=== PATIENT | male | born 1975 | race Caucasian/White ===

== ENCOUNTER 2020-10-09 15:00 | Outpatient (RCR) | payer OTHER, SELFPAY ==
--- NOTE | 2020-06-12 16:35 | MHC.PT.EP ---
[facility] [place] Office [place] Office [place] Office [address] [phone] F: [phone] F: [phone] F: [phone] F: [phone] Physical Therapy Plan of Care Date of Evaluation: 06/12/20 Date of Surgery: Diagnosis: LBP. Assessment: Pt is a 44 y/o male referred to PT for eval and treat of LBP with DJD, L3-4, 4-5 disc bulge with mild central stenosis noted on CT who present with signs and Sx consistent with lumbar dysfunction without radiation resulting in decreased tolerance for sitting, lifting objects of weight, and performing heavy HH chores secondary to decreased lumbar ROM, decreased lumbar strength d/t pain, increased lumbar and LE tissue tension, decreased sitting posture and pain. Pt is deemed an appropriate candidate to receive skilled PT services to address his physical impairments in order to improve his functional ability. Frequency and Duration: The patient will be seen 2x/wk x 5 wks. Short Term Goals: In 1 week: initiate HEP with evidence of compliance. in 3 weeks: improve baseline pain with activity from 6/10 to < 3/10. Halfway Goals: In 5 weeks: I with home program. In 5 weeks: Pt will be able tolerate sitting as long as he requires; initial < 1 hour. In 5 weeks: WNL lumbar extensor MMT; initial good (-) with pain activating L extensor group. Treatment Plan: Modalities to reduce pain, spasms and effusion. Manual therapy to restore motion and function. Therapeutic exercise to improve strength and flexibility. Neuromuscular re-education for posture and balance. Therapeutic activities to return to functional activities of daily living. Electronically signed by: Cipriano Ashley PT. Please sign and return to therapist. Thank you for your referral.
--- NOTE | 2020-10-09 16:54 | MHC.PT.DC ---
[facility] [place] Office [place] Office [place] Office [address] [phone] F: [phone] F: [phone] F: [phone] F: [phone] Physical Therapy Discharge Report Diagnosis: LBP. Date of Surgery: Date of Evaluation: 06/12/20 Date of Discharge: Treatments to Date: 14 Cancellations to Date: 0 No Shows to Date: 0 Discharge Status: Achieved Goals Improved Function Independent with HEP Discharge Summary: Karl has been an active participant in his therapy in and out of the clinic with good motivation has met all of his therapeutic goals and is in agreement with DC at this time. Pt persists with minor L SIJ discomfort intermittently and has skills to managed at this time. Electronically signed by: Cipriano Ashley PT. Please sign and return to therapist. Thank you for your referral.
== END 2021-10-04 12:09 | disposition home or self-care (01) ==
LOC: HO.PTCHIC 15:00
PROVIDERS: PCP Internal Medicine; Visit Provider Internal Medicine
DX: M51.36 Other intervertebral disc degeneration, lumbar region (principal); M51.26 Other intervertebral disc displacement, lumbar region
CPT/HCPCS: 97110; 97140; 97161; 97530

== ENCOUNTER → 2022-05-14 11:13 | Outpatient (BNVA) | payer OTHER, SELFPAY | PROVIDERS: PCP Internal Medicine; Visit Provider Nurse Practitioner | DX: Z01.818 Encounter for other preprocedural examination (principal) | CPT/HCPCS: 99202 ==

== ENCOUNTER 2022-09-03 16:00 | Outpatient (RCR) | payer OTHER, SELFPAY ==
--- NOTE | 2022-05-14 18:35 | MHC.PT.EP ---
[facility] [place] Office [place] Office [place] Office [address] [phone] F: [phone] F: [phone] F: [phone] F: [phone] Physical Therapy Plan of Care Date of Evaluation: Date of Surgery: Diagnosis: LBP Assessment: Pt is a 46 y/o male referred to PT for eval and treat of LBP resulting in decreased tolerance for standing and sitting for duration, as well as traveling, rolling in bed, as well as preforming heavy HH chores secondary to decreased R > L hip strength, decreased core and hip strength, increased LE and lumbar tissue tension, and pain. Pt is deemed an appropriate candidate to receive skilled PT services to address their physical impairments in order to improve their functional ability. Frequency and Duration: The patient will be seen 2 x/ wk x 5 wks. Short Term Goals: initiate HEP. Nursing Home Goals: I with home program and lumbopelvic stab. Pt will be able to sit as long as he'd like with managed Sx. Improve core strength from fair (+) to at least good. Pt will demonstrate (-) LOUISE on exam. Pt will report able to travel with managed Sx. Treatment Plan: Modalities to reduce pain, spasms and effusion. Manual therapy to restore motion and function. Therapeutic exercise to improve strength and flexibility. Neuromuscular re-education for posture and balance. Therapeutic activities to return to functional activities of daily living. Electronically signed by: Cipriano Ashley PT. Please sign and return to therapist. Thank you for your referral.
--- NOTE | 2022-10-22 12:59 | MHC.PT.DC ---
[facility] [place] Office [place] Office [place] Office [address] [phone] F: [phone] F: [phone] F: [phone] F: [phone] Physical Therapy Discharge Report Diagnosis: LBP Date of Surgery: Date of Evaluation: 05/14/22 Date of Discharge: 10/22/22 Treatments to Date: 12 Cancellations to Date: No Shows to Date: Discharge Status: Improved Function Independent with HEP Patient Elected to Stop Discharge Summary: Karl had made improvements in physical therapy however persists with LBP and L hip pain which he reports is more manageable when he is consistent with self care. He did not attend his last visit for final assessment. Electronically signed by: Cipriano Ashley PT. Please sign and return to therapist. Thank you for your referral.
== END 2022-10-22 13:01 | disposition home or self-care (01) ==
LOC: HO.PTCHIC 16:00
PROVIDERS: PCP Internal Medicine; Visit Provider Internal Medicine
DX: M51.26 Other intervertebral disc displacement, lumbar region (principal)
CPT/HCPCS: 97110; 97140; 97161

== ENCOUNTER 2022-09-05 07:24 | Outpatient (REF) | payer OTHER, SELFPAY ==
--- NOTE | ~2022-09-05 | MR_ITS ---
EXAMINATION: MR LUMBAR SPINE WITHOUT CONTRAST CLINICAL INFORMATION: Chronic low back pain L4-L5 area. COMPARISON: No relevant prior imaging. TECHNIQUE: MRI of the lumbar spine was obtained using routine sequences without contrast. FINDINGS: Alignment is normal. Vertebral heights are preserved. No acute bone marrow signal changes. There is slight loss of intervertebral disc height and T2 signal intensity at multiple levels related to disc degeneration. The tip of the conus medullaris is located at L1-L2. No mass effect on the conus. Visualized distal cord signal intensity is normal. At L1-L2 there is a slightly bulging disc. No canal stenosis. No mass effect on the traversing or foraminal nerve roots. At L2-L3 there is a shallow right subarticular protrusion superimposed upon a bulging disc. Bilateral facet degenerative change. No canal stenosis. No mass effect on the traversing or foraminal nerve roots. At L3-L4 there is a diffusely bulging disc. Bilateral facet degenerative change. Mild canal stenosis. Subarticular zone narrowing causes displacement of the right traversing L4 nerve roots. No substantial mass effect on the traversing or foraminal nerve roots. At L4-L5 there is a slightly bulging disc. Bilateral facet degenerative change. No canal stenosis. No substantial mass effect on the traversing or foraminal nerve roots. At L5-S1 there is a central annular fissure associated with a bulging disc. Bilateral facet degenerative change. No canal stenosis. No mass effect on the traversing or foraminal nerve roots. Limited visualization of the retroperitoneal anatomy reveals no abnormal finding. Psoas and paraspinal muscle groups are symmetric. MR/MR lumbar spine wo con IMPRESSION: There is multilevel degenerative spondylosis of the lumbar spine. Mild canal stenosis at L3-L4. Otherwise no canal compromise. Subarticular zone narrowing at L3-L4 causes displacement of the right traversing L4 nerve roots. Otherwise no substantial mass effect on the traversing or foraminal nerve roots elsewhere within the lumbar spine.
== END 2022-09-05 07:25 | disposition home or self-care (01) ==
LOC: HO.MRI 07:24
PROVIDERS: PCP Internal Medicine; Visit Provider Internal Medicine
DX: M51.26 Other intervertebral disc displacement, lumbar region (principal)
CPT/HCPCS: 72148

== ENCOUNTER 2022-12-11 12:26 | Day surgery (SDC) | payer OTHER, SELFPAY ==
[2022-12-09 12:14] VITALS: BMI 25.6
--- NOTE | 2022-12-11 12:14 | MHC.SHP ---
Pre-Procedural Eval Section A Date of Service: 12/11/22 Section B Chief Complaint: screening Relevant Family History (Specify if Yes): No Relevant Social History: None Present Medications: see Short Stay Collaborative assessment Medical History: Significant History (Acute low back pain due to spinal disorder Aftercare following right shoulder joint replacement surgery Bulging of lumbar intervertebral disc without myelopathy Degenerative disc disease, lumbar Lumbago Skin lesion of right leg Superior labrum rqpccesq-cs-gblxrpdnd (SLAP) tear of right shoulder) History of Previous Operations: No relevant previous surgery Allergies: Allergies Allergy/AdvReac Type Severity Reaction Status Date / Time No Known Allergies Allergy Verified 08/22/22 09:19 Review of Systems Sugical H&P ROS: Negative: Constitution, Cardiovascular, Respiratory, Neurological, Psychiatric, Hem-Onc, Allergic/Immunologic, Gastrointestinal, Genitourinary, Musculoskeletal, Integumentary, Endocrine and Eyes/Ears/Nose/Throat Plan Diagnosis/Plan: Unchanged I have reviewed the history and physical and performed a pertinent physical examination on my patient. No changes have occurred unless specified. Time Spent With Patient Time: Total time managing care of this patient today ____ minutes.
[2022-12-11 12:45] VITALS: BP 121/83; PULSE 84; RESP 16; TEMP 36.7; O2SAT 97
--- NOTE | 2022-12-11 12:49 | HO.ANESPROP2 ---
[facility] Active Problems Active Problems: All Active Problems (Updated 08/22/22 @ 09:33 by Cleo Shell MD) Bulging of lumbar intervertebral disc without myelopathy (Acute) Degenerative disc disease, lumbar (Acute) Past Medical History Medical History (Updated 08/22/22 @ 09:33 by Cleo Shell MD) Acute low back pain due to spinal disorder Aftercare following right shoulder joint replacement surgery Bulging of lumbar intervertebral disc without myelopathy Degenerative disc disease, lumbar Lumbago Skin lesion of right leg Superior labrum nuvgwuul-gg-otprchjwe (SLAP) tear of right shoulder Family History Family History Mother Hypertension Family/Other Substance use disorder Family history of problems with anesthesia: No Surgical History Surgical History H/O eye surgery H/O shoulder surgery No pertinent past surgical history History of Problems with Anesthesia: No Social History Social History Housing: House Alcohol intake: never Patient Tobacco Use Status: Former Tobacco user Tobacco use type: Cigarette Years Smoked: 10 e-Cigarette/Vaping Use: Never Used Second Hand Smoke Exposure: No Use of substances other than those prescribed or required for medical reasons: No Are you DNR?: No Advance Directives: No Advance Directives Information Provided: Yes service: Yes Current occupational status: employed Current occupational exposures/hazards: Yes Cognitive needs: No Hearing needs: No Vision needs: No Meds Allergies Allergy/AdvReac Type Severity Reaction Status Date / Time Penicillins [PCN] Allergy Rash Verified 12/11/22 12:48 Active Medications: Current Medications Lactated Ringer's (Lr) 1,000 mls @ 100 mls/hr IVCONT .Q10H [facility] Home Medications Medication Instructions Recorded Confirmed Last Taken Type No Known Home Meds 12/11/22 12/11/22 Unknown History Exam Exam Date and Time: December 11, 2022 1249 Height,Weight and Vital Signs: Height 6 ft 1 in Weight 87.997 kg Airway Mallampati Class: II TM Dist: >3cm Neck ROM: Full Assessment and Plan Assessment Anesthesia Assessment: Anesthesia Plan Discussed and Chart Reviewed Final Anesthetic Review Family History of Problems with Anesthesia: No History of Problems with Anesthesia: No NPO: Yes ASA Class: I Final Preanesthetic Review: No Changes in Pt Med Stat, Meds/Allgs Chart Reviewed, Consent Obtained/Reviewed and Anes Risks/Benef Reviewed Patient Risk: Low Procedure Risk: Low Anesthetic Plan Anesthetic Plan: MAC: Disposition: Standard PACU
[2022-12-11] MEDS: Lactated Ringers 1,000 ML 100 ML IVCONT (12:58)
--- NOTE | 2022-12-11 13:36 | P.OP_ITS ---
Operative Note Operative Note Date of Service: 12/11/22 Narrative: Operative Information Procedure Description: Colonoscopy Indication: screening Anesthesia: MAC COLONOSCOPY Instrument: Olympus variable stiffness pediatric scope 190L Colonoscopy Monitoring: Vital signs and clinical assessment, continuous EKG monitoring, Pulse oximetry, Carbon Dioxide monitoring and blood pressure monitoring were done throughout the procedure. Colon withdrawal time was 8 minutes. Procedure: The patient was placed in the left lateral decubitis position and pre-procedure medications were administered. After a digital rectal examination of the ano-rectum, the video colonoscope was inserted into the rectum and advanced through the colon to the cecum/TI. The colonoscope was slowly withdrawn in a retrograde panoramic fashion and the colon mucosa was carefully examined including a retroflexed view of the rectum. Findings and interventions are described below. Procedure Difficulty: easy Findings: Terminal Ileum-normal Cecum:normal Ascending Colon: normal Transverse Colon -normal Descending Colon:normal Sigmoid Colon: normal Rectum: Retroflexion with medium sized internal hemorrhoids, grade I Anorectum - normal Colon preparation: [place] Bowel Preparation Scale Right colon; 2 Transverse colon: 3 Left colon; 3 (0 = Unprepared colon segment with mucosa not seen due to solid stool that cannot be cleared. 1 = Portion of mucosa of the colon segment seen, but other areas of the colon segment not well seen due to staining, residual stool and/or opaque liquid. 2 = Minor amount of residual staining, small fragments of stool and/or opaque liquid, but mucosa of colon segment seen well. 3 = Entire mucosa of colon segment seen well with no residual staining, small fragments of stool or opaque liquid) Impression and Post Procedure Diagnosis: internal hemorrhoids Plan: High fiber diet leaflet Avoid straining at stool, epsom salts and sitz bath, anusol supps or cream Repeat Colonoscopy in 10 years or earlier if clinically indicated Above findings were reviewed with the patient and relevant handouts were provided if indicated.
[2022-12-11 13:40] VITALS: BP 114/70; PULSE 73; RESP 16; TEMP 37.1; O2SAT 97
[2022-12-11 13:55] VITALS: BP 105/80; PULSE 73; RESP 16; TEMP 36.5; O2SAT 97
== END 2022-12-11 15:27 | disposition home or self-care (01) ==
PROVIDERS: PCP Internal Medicine; Visit Provider Internal Medicine Gastroenterology
PROC: 0DJD8ZZ Inspection of Lower Intestinal Tract, Via Natural or Artificial Opening Endoscopic (ICD-10-PCS; CPT 45378; principal; 2022-12-11 14:20)
DX: Z12.11 Encounter for screening for malignant neoplasm of colon (principal); K64.0 First degree hemorrhoids; Z87.891 Personal history of nicotine dependence
CPT/HCPCS: 45378

== ENCOUNTER → 2022-12-11 12:26 | Outpatient (BNV) | payer OTHER, SELFPAY | PROVIDERS: PCP Internal Medicine; Visit Provider Internal Medicine Gastroenterology | DX: Z12.11 Encounter for screening for malignant neoplasm of colon (principal) | CPT/HCPCS: 45378 ==

== ENCOUNTER 2022-12-25 08:01 | Outpatient (AMB) | payer OTHER, SELFPAY ==
--- NOTE | 2022-12-25 08:06 | MHC.OFFVIS ---
Intake Vital Signs 12/25/22 08:17 Height 6 ft 1 in Weight 192 lb BMI 25.3 Blood Pressure Location Lt brachial Position Sitting Intake Visit Reasons: S/p colon-Hay Intake Note: Karl presents in the office as a follow up colonoscopy. CC: No concerns since his colonoscopy - just here for the results. Allergies Penicillins [PCN] Allergy (Verified 12/11/22 12:48) Rash HPI S/p colon-Hay HPI Details Assessment & Plan (1) Pre-op examination: ?Code(s): Z01.818 - Encounter for other preprocedural examination ?Plan: This is his first colonoscopy No bowel or upper GI problems There are no prior problems with anesthesia or sedation. He denies any cardiac or respiratory problems. No ID problems There is no known FHX of crc or polyps. ? ? ? Orders: Orders Comprehensive Met. Panel Today Z01.818 - Encounte r for other prepro cedural examinatio n ? Complete Blood Cou nt Auto Diff Today Z01.818 - Encounte r for other prepro cedural examinatio n ? Medications: New peg 3350-electroly alexis 236-22.74-6.74 -5.86 gram (Golyt ibis) ?? until feca l effluent is damian r; do not exceed a total volume of 2 ,000 mL 240 mL? PO Q10M 1 day 4,000 mL 0RF Z12.11 - Encounter for screening for malignant neoplas m of colon ? COLONOSCOPY 12/11/22 Findings: Terminal Ileum-normal Cecum:normal Ascending Colon: normal Transverse Colon -normal Descending Colon:normal Sigmoid Colon:? normal Rectum: Retroflexion with medium sized internal hemorrhoids, grade I Anorectum - normal Impression and Post Procedure Diagnosis: internal hemorrhoids Plan: High fiber diet leaflet Avoid straining at stool, epsom salts and sitz bath, anusol supps or cream Repeat Colonoscopy in 10 years or earlier if clinically indicated TODAY'S VISIT He is agreeable to a 10 year follow-up. The procedure was well tolerated. The results were explained and the patient is agreeable to the follow-up interval as stated. The bowel pattern has returned to normal. Education was provided to tell any 1st degree relatives about their findings to be sure that they are screened by age 45. Educated that they will be put on a recall list when it is time for their repeat scope but should they move out of state or away from the hospital they will need to remember along with their primary to repeat the procedure in a timely fashion to avoid any adverse complications. [facility] Medical History (Updated 12/25/22 @ 09:06 by SHEREEN Faith) Acute low back pain due to spinal disorder Aftercare following right shoulder joint replacement surgery Bulging of lumbar intervertebral disc without myelopathy Degenerative disc disease, lumbar Lumbago Skin lesion of right leg Superior labrum ijkxoiyy-ys-boeubirrw (SLAP) tear of right shoulder Surgical History (Updated 12/25/22 @ 08:18 by STEVEN Coffman) H/O eye surgery H/O shoulder surgery Hx of colonoscopy No pertinent past surgical history Family History Mother Hypertension Family/Other Substance use disorder Social History Housing: House Alcohol intake: never Patient Tobacco Use Status: Former Tobacco user Tobacco use type: Cigarette Years Smoked: 10 e-Cigarette/Vaping Use: Never Used Second Hand Smoke Exposure: No service: Yes Current occupational status: employed Current occupational exposures/hazards: Yes Cognitive needs: No Hearing needs: No Vision needs: No Review of Systems Const Denies fatigue, Denies fever(s), Denies night sweats, Denies poor appetite and Denies weight loss Eyes Details: glasses Reports requires corrective lenses ENT Reports Normal hearing present, Denies dental pain, Denies dysphagia, Denies hearing loss, Denies mouth pain, Denies odynophagia, Denies throat swelling, Denies tongue swelling and Reports other (Dentition adequate) Card Reports no additional complaints Resp Reports no additional complaints GI Denies abdominal pain, Denies melena, Denies bloating, Denies hematochezia, Denies constipation, Denies GI cramping, Denies dysphagia, Denies excessive flatus, Denies early satiety, Denies heartburn, Denies diarrhea, Denies nausea, Denies odynophagia, Denies vomiting and Denies hematemesis Skin/Breast Denies pruritus, Denies lesions, Denies rash and Denies jaundice Neuro Reports Normal hearing present and Denies Abnormal speech present Endo Denies fatigue Aller/Immun Denies throat swelling and Denies tongue swelling Physical Exam Vital Signs: BMI result Body Mass Index 25.3 Const General: cooperative, no acute distress, well developed and well groomed Nutritional Appearance: well nourished Orientation/consciousness: oriented to person, oriented to place and oriented to time Limitations: No language barrier HEENT Head: Yes normocephalic and Yes atraumatic Eyes General: appearance normal, both eyes and all related structures Pupils: Equal, round and reactive pupils present Neck Neck: Yes normal visual inspection and Yes no lymphadenopathy Thyroid: Thyroid normal Resp Effort & Inspection: normal respiratory effort and able to speak in complete sentences Auscultation: clear to auscultation bilaterally Cardio Rate: regular rate Rhythm: regular rhythm Heart sounds: Normal, physiologic split S2 sound present Peripheral pulses: radial pulses present and posterior tibial pulses present GI Inspection: No distended and No Abdominal panniculus present Palpation (GI): Soft to palpation, nontender, no guarding, not rigid and No hepatosplenomegaly present Percussion: Yes normal to percussion Auscultation: normal bowel sounds Rectal Exam - Male: Yes deferred Skin General skin exam: no rashes or lesions noted, turgor normal, skin not dry, no jaundice, No spider nevi and no striae Rashes: no rashes Nails: normal Neuro General: oriented to person, oriented to place and oriented to time Cranial nerves: Yes Equal, round and reactive pupils present and Yes Normal hearing present Speech: No Abnormal speech present Extrem General: Yes normal to inspection, No clubbing, No cyanosis and No edema Psych Appearance: grossly normal and well kempt Mental Status: mental status grossly normal Speech and movement: Normal speech and movement present Affect: normal affect Attitude: cooperative Thought process: Normal thought process present and not confabulating Thought content: Normal thought content present Insight: Good insight present (Psych) Judgement: Good judgement present (Psych) Assessment & Plan Assessment & Plan (1) Colon cancer screening: Code(s): Z12.11 - Encounter for screening for malignant neoplasm of colon Plan: He is agreeable to a 10 year follow-up. The procedure was well tolerated. The results were explained and the patient is agreeable to the follow-up interval as stated. The bowel pattern has returned to normal. Education was provided to tell any 1st degree relatives about their findings to be sure that they are screened by age 45. Educated that they will be put on a recall list when it is time for their repeat scope but should they move out of state or away from the hospital they will need to remember along with their primary to repeat the procedure in a timely fashion to avoid any adverse complications. Coding Level of Care Code Est Pt Level 3 (93883) Diagnoses Colon cancer screening Z12.11
[2022-12-25 08:17] VITALS: BMI 25.3
== END 2022-12-25 08:43 | disposition home or self-care (01) ==
PROVIDERS: PCP Internal Medicine; Visit Provider Nurse Practitioner
DX: K64.0 First degree hemorrhoids (principal); Z71.2 Person consulting for explanation of examination or test findings
CPT/HCPCS: 99213

== ENCOUNTER → 2022-12-25 08:01 | Outpatient (BNVA) | payer OTHER, SELFPAY | PROVIDERS: PCP Internal Medicine; Visit Provider Nurse Practitioner | DX: Z12.11 Encounter for screening for malignant neoplasm of colon (principal) | CPT/HCPCS: 99212 ==

== ENCOUNTER 2023-02-06 13:57 | Outpatient (AMB) | payer OTHER, SELFPAY ==
--- NOTE | 2023-02-06 13:59 | A.OFFPC_ITS ---
<Statement entered by Cleo Shell MD - 07/03/25 23:59> This note has been administratively?closed. Vital Signs 02/06/23 14:08 Height 6 ft 1 in Weight 194 lb BMI 25.6 BP 104/60 Blood Pressure Location Lt brachial Position Sitting Pulse 80 Pulse Source Pulse Oximeter Pulse Oximetry (%) 97 Oxygen Delivery Method Room Air Intake Visit Reasons: Annual PE Intake Note: Pt is here today for his PE Allergies Penicillins (PCN) Allergy (Verified 02/24/25 12:07) Rash Medication List - Last Reconciled 02/06/23 by Cleo Shell MD No Known Home Meds Tobacco use date assessed: 02/06/23 Dental Screening Dental Screen Date: 02/06/23 Did you have a dental visit in the last 12 months?: Yes Did you have a dental problem in the last 6 months where you did not have access to dental care?: No Was dental information given to patient?: Patient has dentist HPI Annual PE HPI Details 47-year-old male, here today for a physi adis exam. He is up-to-date with screening colonoscopy done this summer with Dr. Duncan which only showed presence of mild internal hemorrhoids, repeat screening again in 10 years. He has recurrent low back pain due to degenerative disc disease in lumbar spine. Currently not taking anything as nothing helps. Tried PT in the past several times Has a lesion on right knee that is growing in size, would like it removed. [facility] Medical History (Updated 02/27/25 @ 11:38 by Cleo Shell MD) Erectile dysfunction Bruxism (teeth grinding) Generalized anxiety disorder TMJ (temporomandibular joint disorder) Lumbago Bulging of lumbar intervertebral disc without myelopathy Degenerative disc disease, lumbar Superior labrum elwzgimu-in-isxhzoyoj (SLAP) tear of right shoulder Surgical History Skin lesion of right leg Hx of colonoscopy H/O shoulder surgery H/O eye surgery Family History Mother Hypertension Family/Other Substance use disorder Social History Housing: House Alcohol intake: never Patient Tobacco Use Status: Former Tobacco user Tobacco use type: Cigarette Years Smoked: 10 e-Cigarette/Vaping Use: Never Used Second Hand Smoke Exposure: No service: Yes Current occupational status: employed Current occupational exposures/hazards: Yes Cognitive needs: No Hearing needs: No Vision needs: Yes Questionnaire PHQ-9 Over the last 2 weeks, how often have you been bothered by any of the following problems? 1. Little interest or pleasure in doing things: not at all 2. Feeling down, depressed, or hopeless: not at all 3. Trouble falling or staying asleep, or sleeping too much: not at all 4. Feeling tired or having little energy: not at all 5. Poor appetite or overeating: not at all 6. Feeling bad about yourself - or that you are a failure or have let yourself or your family down: not at all 7. Trouble concentrating on things, such as reading the newspaper or watching television: not at all 8. Moving or speaking so slowly that other people could have noticed. Or the opposite - being so fidgety or restless that you have been moving around a lot more than usual: not at all 9. Thoughts that you would be better off or of hurting yourself in some way: not at all Total score: 0 Depression Screening Interpretation: Negative 26355 - PHQ-9 Billing: Yes Source: Developed by Drs. Guilherme Marie, Lydia Fisher, Oscar Rockwell and colleagues, with an educational anne marie from [employer]. Thrive Questionnaire Date Thrive assessed: 02/06/23 I am a: Patient What is your living situation today?: I have a steady place to live Within the past 12 months, did the food you bought not last and you didn't have the money to get more?: Never true Within the past 12 months, did you worry whether your food would run out before you got money to buy more?: Never true Do you have trouble paying for medicines?: No Do you have trouble getting transportation to medical appointments?: No Do you have trouble paying your heating and electricity bill?: No Do you have trouble taking care of your child, family member or friend?: No Do you have trouble with day-to-day activities such as bathing, preparing meals, shopping, managing finances, etc.?: No Are you currently unemployed and looking for a job?: No Are you interested in more education?: No AUDIT C Alcohol Use Questionnaire (AUDIT-C) 1. How often do you have a drink containing alcohol?: Never Total Score: 0 DEMOND-7 AMB Questionnaire DEMOND-7 Date DEMOND - 7 assessed: 02/06/23 Feeling nervous, anxious, or on edge: 0 = Not at all Not being able to stop or control worryin = Not at all Worrying too much about different things: 0 = Not at all Trouble relaxin = Not at all Being so restless that it is hard to sit still: 0 = Not at all Becoming easily annoyed or irritable: 0 = Not at all Feeling afraid as if something awful might happen: 0 = Not at all Total DEMOND-7 score (0-4 normal; 5-9 mild; 10-14 moderate; 15-21 severe): 0 Source: Developed by Drs. Guilherme Marie, Lydia Fisher, Oscar Rockwell and colleagues, with an educational anne marie from [employer]. DEMOND-7 Assessment Billing DEMOND-7 Assessment Tool: DEMOND-7 Assessment 26927 Review of Systems Const Denies fatigue, Denies fever(s), Denies headache(s) and Denies weakness Eyes Details: Goes to [facility] in [place] [facility] Denies dizziness, Denies headache(s), Denies nasal congestion, Denies nasal discharge and Denies sore throat Card Denies chest pain, Denies lightheadedness, Denies palpitations and Denies dyspnea Resp Denies chest congestion, Denies cough, Denies dyspnea and Denies wheezing GI Denies abdominal pain, Denies change in bowel habits and Denies heartburn Denies hematuria, Denies difficulty urinating, Denies genital lesions, Denies dysuria, Denies nocturia, Denies penile discharge, Denies scrotal swelling, Denies testicular mass, Denies testicular pain, Denies urinary frequency and Denies urinary urgency Musc Reports as per HPI, Denies arthralgias, Denies joint swelling, Denies muscle weakness, Denies numbness, Denies radiating pain into limb, Reports stiffness and Denies tingling Skin/Breast Reports as per HPI Neuro Denies dizziness, Denies headache(s), Denies numbness, Denies Sensory deficit (Neuro), Denies tingling and Denies weakness Psych Reports as per HPI Endo Denies fatigue, Denies polydipsia, Denies polyuria and Denies palpitations Feroz/Lymph Denies easy bruising Aller/Immun Denies seasonal rhinorrhea and Denies wheezing Physical exam (Primary Care) Vital Signs: Last Vital Signs Pulse 80 02/06/23 14:08 BP 104/60 02/06/23 14:08 Pulse Ox 97 02/06/23 14:08 Oxygen Delivery Method Room Air 02/06/23 14:08 BMI result Body Mass Index 25.6 Tobacco/Smoking Status: Tobacco use Status Tobacco use date assessed 02/06/23 02/06/23 14:05 Patient Tobacco Use Status Former Tobacco user 02/06/23 14:01 Tobacco use type Cigarette 02/06/23 14:01 e-Cigarette/Vaping Use Never Used 02/06/23 14:01 PHQ-9: PHQ-9 Score PHQ-9: Total score 0 03/03/23 09:55 Depression Screening Interpretation: Negative Thrive Assessment: Date of Thrive Assessment Date Thrive assessed 02/06/23 02/06/23 14:11 Const Other: Alert oriented x3, no acute distress noted ambulatory with the slightly limping gait, having difficulty straightening back due to pain General: healthy appearing, no acute distress and well developed Nutritional Appearance: average body habitus Orientation/consciousness: patient oriented x3 Limitations: no limitations HENMT Head: Yes normocephalic and Yes atraumatic Ears: external ears normal, TM's normal bilaterally and EAC's normal General nose exam: Normal external nose present Face and sinus: Yes face symmetric Mouth: Normal oral and palatal mucosa present, oropharynx normal and moist mucous membranes Eyes General: appearance normal, both eyes and all related structures Neck Neck: Yes full ROM, Yes no lymphadenopathy, Yes no meningeal signs and Yes supple Thyroid: Thyroid normal Chest Chest palpation & inspection: normal inspection of the chest Resp Effort & Inspection: normal respiratory effort and able to speak in complete sentences Auscultation: clear to auscultation bilaterally Cardio Other: S1-S2 present regular rate and rhythm Rate: regular rate Rhythm: regular rhythm Heart sounds: S1 normal heart sound present and S2 normal heart sound present GI Other: Normal bowel sounds soft nontender with no mass palpated Inspection: Yes normal to inspection Palpation (GI): Soft to palpation, nontender, no guarding, no hernias and no masses Auscultation: normal bowel sounds General: Yes no CVA tenderness Male General Exam: Yes normal external exam Back/Spine/Pelvis Back: no CVA tenderness Thoracic/Lumbar Spine: straight leg raise negative bilaterally, paraspinal muscle tenderness bilaterally in the lower lumbar and thoraco-lumbar ROM limited Skin Other: Exophytic dry skin lesion noted on right knee Neuro General: patient oriented x3, tone normal, moves all extremities, Normal light touch and pain sensation, no meningeal signs, no focal motor deficits, CN's II- XI intact bilaterally and normal sensation to monofilament Cognition (Neuro): normal cognition Gait exam (Neuro): Normal gait present Sensory Exam: No Sensory deficit (Neuro) Extrem General: Yes full ROM, Yes no joint enlargement and Yes no clubbing, cyanosis or edema Psych Appearance: grossly normal and well kempt Mental Status: mental status grossly normal Speech and movement: Normal speech and movement present Affect: normal affect Thought process: Normal thought process present Thought content: Normal thought content present Coding Level of Care Code Admin Sign Off/No Billing Diagnoses Adult general medical exam Z00.00 Need for lipid screening Z13.220 Screening for diabetes mellitus Z13.1 Degenerative disc disease, lumbar M51.36 Skin lesion of right leg L98.9 Annual visit for general adult medical examination with abnormal findings Z00.01 Bulging of lumbar intervertebral disc without myelopathy M51.26 Additional Codes DEMOND-7 Assessment Billing - DEMOND-7 Assessment Tool: DEMOND-7 Assessment 48079 ([id number])
[2023-02-06 14:08] VITALS: BP 104/60; PULSE 80; O2SAT 97; BMI 25.6
== END 2023-02-06 14:52 | disposition home or self-care (01) ==
PROVIDERS: Visit Provider Internal Medicine
DX: Z00.00 Encounter for general adult medical examination without abnormal findings (principal); Z13.220 Encounter for screening for lipoid disorders; Z13.1 Encounter for screening for diabetes mellitus; M51.36 Other intervertebral disc degeneration, lumbar region; L98.9 Disorder of the skin and subcutaneous tissue, unspecified; Z00.01 Encounter for general adult medical examination with abnormal findings; M51.26 Other intervertebral disc displacement, lumbar region
CPT/HCPCS: 96127; 99499

== ENCOUNTER 2023-02-26 08:12 | Outpatient (REF) | payer OTHER, SELFPAY | END 2023-02-26 08:13 | disposition home or self-care (01) | LOC: HO.LNP 08:12 | PROVIDERS: PCP Internal Medicine; Referring Provider Internal Medicine; Visit Provider Surgery | DX: B07.9 Viral wart, unspecified (principal) | CPT/HCPCS: 11402; 88304; 88305 ==

== ENCOUNTER 2023-02-26 08:12 | Outpatient (AMB) | payer OTHER, SELFPAY ==
[2023-02-26 08:15] VITALS: BP 131/81; PULSE 59; BMI 25.5
--- NOTE | 2023-02-26 08:15 | A.OFFVIS_ITS ---
Intake Vital Signs 02/26/23 08:15 Height 6 ft 1 in Weight 193 lb BMI 25.5 BP 131/81 Blood Pressure Location Lt brachial Position Sitting Pulse 59 Intake Visit Reasons: Rt leg lesion Intake Note: Patient referred for lesion on rt knee. Has been present for 2yrs. Denies bleeding,pain, itch or discomfort. No prior hx of trauma to area. No personal hx of skin ca. Environmental Designer Required: No Accompanied by: Self / Same As Patient Allergies Penicillins [PCN] Allergy (Verified 02/26/23 08:20) Rash HPI HPI Comments History of Present Illness Details Patient presents for evaluation of a soft tissue mass involving his right knee. He has had this approximately 2 years time. Increasing size, becoming more symptomatic. He wished to have removed. Patient has had no such lesions elsewhere. Relatively healthy patient. Chart was reviewed patient evaluated [facility] Medical History Chronic low back pain Skin lesion of right leg Lumbago Bulging of lumbar intervertebral disc without myelopathy Aftercare following right shoulder joint replacement surgery Acute low back pain due to spinal disorder Degenerative disc disease, lumbar Superior labrum ltwupjes-lk-jpgmovgxw (SLAP) tear of right shoulder Surgical History Hx of colonoscopy H/O shoulder surgery H/O eye surgery No pertinent past surgical history Family History Mother Hypertension Family/Other Substance use disorder Social History Housing: House Alcohol intake: never Patient Tobacco Use Status: Former Tobacco user Tobacco use type: Cigarette Years Smoked: 10 e-Cigarette/Vaping Use: Never Used Second Hand Smoke Exposure: No service: Yes Current occupational status: employed Current occupational exposures/hazards: Yes Cognitive needs: No Hearing needs: No Vision needs: No Physical Exam Vital Signs: Last Vital Signs Pulse 59 02/26/23 08:15 BP 131/81 02/26/23 08:15 BMI result Body Mass Index 25.5 Skin Other: Approximately 2 x 1 cm superficial exophytic growth vomiting the right knee consistent with a wart type process. Office Procedures Excision Details: Risks, benefits, alternatives of excision of superficial right knee lesion were reviewed with the patient included but not limited to bleeding, infection, recurrence, numbness, pain, scarring the patient was to proceed. All questions were answered. After appropriate positioning, patient underwent 1% lidocaine and Betadine prep and uneventful tangential excision of approximately 2 x 1 cm superficial lesion of the right knee. Specimen sent to pathology. Wound base was cauterized with silver nitrate followed by bacitracin sterile dressing. Patient tolerated procedure well. 43752-tmjod/arms/legs 1.1-2cm Procedure code (CPT) selection complete Office Meds lidocaine 1 %-epinephrine 1:100,000 injection solution Performing Provider: Papo Coyle MD Performing Location: [facility] [place] [facility] Administered by: Papo Coyle MD on 02/26/23 08:45 Dose Route Admin Location Dispensed Lot Number Expiration Date 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 Orders: Orders AMB Excision Today L98.9 - Disorder of the skin and subcutaneous tissue, unspecified Coding Level of Care Code New Pt Level 4 (79092) Diagnoses Skin lesion of right leg L98.9 CPT Codes Trunk/Arms/Legs - CPT: 59796-saufm/arms/legs 1.1-2cm ([id number])
== END 2023-02-26 08:44 | disposition home or self-care (01) ==
PROVIDERS: PCP Internal Medicine; Referring Provider Internal Medicine; Visit Provider Surgery
DX: L98.9 Disorder of the skin and subcutaneous tissue, unspecified (principal)
CPT/HCPCS: 11402; 99204

== ENCOUNTER 2023-03-12 08:50 | Outpatient (AMB) | payer OTHER, SELFPAY ==
[2023-03-12 09:01] VITALS: BP 132/82; PULSE 58; BMI 25.5
--- NOTE | 2023-03-12 09:01 | MHC.OFFVIS ---
Intake Vital Signs 03/12/23 09:01 Height 6 ft 1 in Weight 193 lb BMI 25.5 BP 132/82 Blood Pressure Location Rt brachial Position Sitting Pulse 58 Intake Visit Reasons: s/p rt knee bx Intake Note: Patient here s/p bx on rt knee. Reports site healing well. Denies redness, o Allergies Penicillins [PCN] Allergy (Verified 03/12/23 09:02) Rash HPI HPI Comments History of Present Illness Details Patient has no wound issues or complaints. Pathology is benign. [facility] Medical History (Updated 03/03/23 @ 09:54 by Cleo Shell MD) Lumbago Bulging of lumbar intervertebral disc without myelopathy Aftercare following right shoulder joint replacement surgery Acute low back pain due to spinal disorder Degenerative disc disease, lumbar Superior labrum sbyrdwgk-bj-txzssvzol (SLAP) tear of right shoulder Surgical History (Updated 03/03/23 @ 09:54 by Cleo Shell MD) Skin lesion of right leg Hx of colonoscopy H/O shoulder surgery H/O eye surgery Family History Mother Hypertension Family/Other Substance use disorder Social History Housing: House Alcohol intake: never Patient Tobacco Use Status: Former Tobacco user Tobacco use type: Cigarette Years Smoked: 10 e-Cigarette/Vaping Use: Never Used Second Hand Smoke Exposure: No service: Yes Current occupational status: employed Current occupational exposures/hazards: Yes Cognitive needs: No Hearing needs: No Vision needs: No Physical Exam Vital Signs: Last Vital Signs Pulse 58 03/12/23 09:01 BP 132/82 03/12/23 09:01 BMI result Body Mass Index 25.5 Extrem Other: Wound is clean dry and intact with with eschar. Assessment & Plan Assessment & Plan (1) Skin lesion of right leg: Code(s): L98.9 - Disorder of the skin and subcutaneous tissue, unspecified Plan Patient has been given local instructions, and will follow-up p.r.n. pain Coding Level of Care Code Global (91224) Diagnoses Skin lesion of right leg L98.9
== END 2023-03-12 09:08 | disposition home or self-care (01) ==
PROVIDERS: PCP Internal Medicine; Visit Provider Surgery
DX: L98.9 Disorder of the skin and subcutaneous tissue, unspecified (principal)
CPT/HCPCS: 99024

== ENCOUNTER → 2023-03-12 08:50 | Outpatient (BNVA) | payer OTHER, SELFPAY | PROVIDERS: PCP Internal Medicine; Visit Provider Surgery ==

== ENCOUNTER 2023-03-14 09:17 | Outpatient (AMB) | payer OTHER, SELFPAY ==
--- NOTE | 2023-03-14 09:32 | HO.SPINEOV ---
Intake Intake Visit Reasons: multi degenerative spondylosis of lumbar spine Intake Note: Mr. Richards is here today c/o low back pain. MRI done @ [facility] – [place]. 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 He is a very nice 47-year-old gentleman who presents to the office today for evaluation of a left sided lower back pain. He tells me that it started a few years ago, when he was sitting in a chair fell an abrupt onset of pain right over the left side of the low back. It did not shoot down his leg, but it was severe in intensity and ended up giving him need for rehab in the form of physical therapy, rest, ibuprofen etc.. It would bother him on and off, more recently happened again last year when he was sitting on the floor and got up and felt the discomfort. Again he went through the rehabilitation process with fairly good results and is mostly back to near normal. If he discontinues doing the exercises that the therapist gave him he will notice things tightened up. His symptoms can be aggravated with this prolonged sitting and get better if he gets up and moves around. He has no radicular pain down his leg, tingling numbness etc.. He had an MRI showing mild disc degeneration and he was sent today to see us for an evaluation. PMH: Right shoulder surgery and left eye surgery Social hx: He does not smoke Medications: He takes no medications Allergies: Amoxicillin Physical exam: Strength, gait are normal, he does have a contralateral LOUISE sign inducing pain on the left side. Negative Gaenslen sign. Imaging review: He is a relatively modest amount of disc degeneration at L3-4 and L5-S1. The radiology report suggests there could be some nerve compression but I do not see any actual findings consistent with that. Impression: 47-year-old gentleman with a left-sided low back pain which seems to fit best with possibly something along the SI joint region or possible gluteal tendinopathy. He gets better as he gets up and moves around. He has no radicular symptoms. He has no centralized low back pain. It is relatively mild and does not require him to use any significant amount of kxuq-ief-zoswhtj pain medications, nor does it limit any of his lifestyle activities. He does have some modest disc degeneration but it is hard to know if any of this is contributing to his symptoms because these can be normal findings. Most likely there incidental. I encouraged him to continue with the physical therapy exercises which seemed to help him tremendously. He can take xtfa-prq-iajvynt medications as needed if he gets a flare-up. Would be happy to see him back as needed. He has no restrictions. Thank you for allowing us to care for your patient. The total time spent with this visit with this patient was 45 minutes reviewing history, physical exam, lumbar imaging review, and implementation of treatment plan or further diagnostic testing Kaushal Hayes MD,PhD [facility] Coding Level of Care Code New Pt Level 4 (03822) Diagnoses Back pain M54.9
== END 2023-03-14 09:48 | disposition home or self-care (01) ==
PROVIDERS: PCP Internal Medicine; Referring Provider Internal Medicine; Visit Provider Physician Assistant
DX: M54.9 Dorsalgia, unspecified (principal)
CPT/HCPCS: 99204

== ENCOUNTER → 2023-03-14 09:17 | Outpatient (BNVA) | payer OTHER, SELFPAY | PROVIDERS: PCP Internal Medicine; Visit Provider Physician Assistant ==

== ENCOUNTER 2024-02-17 12:25 | Outpatient (AMB) | payer OTHER, SELFPAY ==
--- NOTE | 2024-02-17 12:45 | A.OFFPC_ITS ---
Vital Signs 02/17/24 12:46 Height 6 ft 1 in Weight 190 lb BMI 25.1 BP 110/70 Blood Pressure Location Rt brachial Position Sitting Pulse 72 Pulse Source Pulse Oximeter Pulse Oximetry (%) 98 Oxygen Delivery Method Room Air Intake Visit Reasons: Annual PE Intake Note: Pt is here today for his PE Last colonoscopy 12/11/22 Allergies Penicillins [PCN] Allergy (Verified 02/17/24 13:10) Rash Medication List - Last Reconciled 02/17/24 by Cleo Shell MD loratadine 10 mg PO DAILY PRN Tobacco use date assessed: 02/17/24 Dental Screening Dental Screen Date: 02/17/24 Did you have a dental visit in the last 12 months?: Yes Did you have a dental problem in the last 6 months where you did not have access to dental care?: No Was dental information given to patient?: Patient has dentist HPI Annual PE HPI Details 48-year-old male, here today for physica l exam he is up-to-date with his screening colonoscopy done last year with normal findings done by Dr. Hay, repeat due again in 2032. He has temporomandibular joint dysfunction, referred by his dentist to an oral surgeon. [facility] Medical History (Updated 02/17/24 @ 13:24 by Cleo Shell MD) TMJ (temporomandibular joint disorder) Lumbago Bulging of lumbar intervertebral disc without myelopathy Aftercare following right shoulder joint replacement surgery Acute low back pain due to spinal disorder Degenerative disc disease, lumbar Superior labrum vvgmeruz-my-sheccucba (SLAP) tear of right shoulder Surgical History (Updated 02/17/24 @ 13:24 by Cleo Shell MD) Skin lesion of right leg Hx of colonoscopy H/O shoulder surgery H/O eye surgery Family History Mother Hypertension Family/Other Substance use disorder Social History Housing: House Alcohol intake: never Patient Tobacco Use Status: Former Tobacco user Tobacco use type: Cigarette Years Smoked: 10 e-Cigarette/Vaping Use: Never Used Second Hand Smoke Exposure: No service: Yes Current occupational status: employed Current occupational exposures/hazards: Yes Cognitive needs: No Hearing needs: No Vision needs: No Questionnaire PHQ-9 Over the last 2 weeks, how often have you been bothered by any of the following problems? 1. Little interest or pleasure in doing things: not at all 2. Feeling down, depressed, or hopeless: not at all 3. Trouble falling or staying asleep, or sleeping too much: not at all 4. Feeling tired or having little energy: not at all 5. Poor appetite or overeating: not at all 6. Feeling bad about yourself - or that you are a failure or have let yourself or your family down: not at all 7. Trouble concentrating on things, such as reading the newspaper or watching television: not at all 8. Moving or speaking so slowly that other people could have noticed. Or the opposite - being so fidgety or restless that you have been moving around a lot more than usual: not at all 9. Thoughts that you would be better off or of hurting yourself in some way: not at all Total score: 0 Depression Screening Interpretation: Negative Depression Screening Done: Yes 83429 - PHQ-9 Billing: Yes Source: Developed by Drs. Guilherme Marie, Lydia Fisher, Oscar Rockwell and colleagues, with an educational anne marie from [employer]. Thrive Questionnaire Date Thrive assessed: 02/17/24 I am a: Patient What is your living situation today?: I have a steady place to live Within the past 12 months, did the food you bought not last and you didn't have the money to get more?: Never true Within the past 12 months, did you worry whether your food would run out before you got money to buy more?: Never true Do you have trouble paying for medicines?: No Do you have trouble getting transportation to medical appointments?: No Do you have trouble paying your heating and electricity bill?: No Do you have trouble taking care of your child, family member or friend?: No Do you have trouble with day-to-day activities such as bathing, preparing meals, shopping, managing finances, etc.?: No Are you interested in more education?: No Please select the resources that you would like help with: None Currently or been in a relationship where the following occur: No concerns reported THRIVE Score: 0 AUDIT C Alcohol Use Questionnaire (AUDIT-C) 1. How often do you have a drink containing alcohol?: Never Total Score: 0 DEMOND-7 AMB Questionnaire DEMOND-7 Date DEMOND - 7 assessed: 02/17/24 Feeling nervous, anxious, or on edge: 1 = Several days Not being able to stop or control worryin = Several days Worrying too much about different things: 0 = Not at all Trouble relaxin = Several days Being so restless that it is hard to sit still: 0 = Not at all Becoming easily annoyed or irritable: 1 = Several days Feeling afraid as if something awful might happen: 0 = Not at all Total DEMOND-7 score (0-4 normal; 5-9 mild; 10-14 moderate; 15-21 severe): 4 Source: Developed by Drs. Guilherme Marie, Lydia Fisher, Oscar Rockwell and colleagues, with an educational anne marie from [employer]. DEMOND-7 Assessment Billing DEMOND-7 Assessment Tool: DEMOND-7 Assessment 79702 Review of Systems Const Denies fatigue, Denies fever(s), Denies headache(s) and Denies weakness Eyes Details: Goes to [facility] in [place] ENT Reports as per HPI, Denies dizziness, Denies headache(s), Denies nasal congestion, Denies nasal discharge and Denies sore throat Card Denies chest pain, Denies lightheadedness, Denies palpitations and Denies dyspnea Resp Denies chest congestion, Denies cough, Denies dyspnea and Denies wheezing GI Denies abdominal pain, Denies change in bowel habits and Denies heartburn Denies hematuria, Denies difficulty urinating, Denies genital lesions, Denies dysuria, Denies nocturia, Denies penile discharge, Denies scrotal swelling, Denies testicular mass, Denies testicular pain, Denies urinary frequency and Denies urinary urgency Musc Reports as per HPI, Denies arthralgias, Denies joint swelling, Denies muscle weakness, Denies numbness, Denies radiating pain into limb, Reports stiffness and Denies tingling Skin/Breast Reports as per HPI Neuro Denies dizziness, Denies headache(s), Denies numbness, Denies Sensory deficit (Neuro), Denies tingling and Denies weakness Psych Reports as per HPI Endo Denies fatigue, Denies polydipsia, Denies polyuria and Denies palpitations Feroz/Lymph Denies easy bruising Aller/Immun Denies seasonal rhinorrhea and Denies wheezing Physical exam (Primary Care) Vital Signs: Last Vital Signs Pulse 72 02/17/24 12:46 BP 110/70 02/17/24 12:46 Pulse Ox 98 02/17/24 12:46 Oxygen Delivery Method Room Air 02/17/24 12:46 BMI result Body Mass Index 25.1 Tobacco/Smoking Status: Tobacco use Status Tobacco use date assessed 02/17/24 02/17/24 12:49 Patient Tobacco Use Status Former Tobacco user 02/17/24 12:49 Tobacco use type Cigarette 02/17/24 12:49 e-Cigarette/Vaping Use Never Used 02/17/24 12:49 PHQ-9: PHQ-9 Score PHQ-9: Total score 0 02/22/24 23:26 Depression Screening Interpretation: Negative Thrive Assessment: Date of Thrive Assessment Date Thrive assessed 02/17/24 02/17/24 12:49 Currently or been in a relationship where the following occur: No concerns reported Advance Care Planning discussion: Completed/Scanned Date of discussion: 02/18/24 Who was present: Patient Forms completed: Health Care Proxy Time spent: 16-45 minutes Actual minutes spent: 16 Const General: no acute distress and well developed Nutritional Appearance: average body habitus Orientation/consciousness: patient oriented x3 HENMT Other: Tenderness on palpation over bilateral TMJ, positive clicking Head: Yes normocephalic and Yes atraumatic Ears: external ears normal, TM's normal bilaterally and EAC's normal General nose exam: Normal external nose present Face and sinus: Yes face symmetric Mouth: Normal oral and palatal mucosa present, oropharynx normal and moist mucous membranes Eyes General: appearance normal, both eyes and all related structures Neck Neck: Yes full ROM, Yes no lymphadenopathy, Yes no meningeal signs and Yes supple Thyroid: Thyroid normal Chest Chest palpation & inspection: normal inspection of the chest Resp Effort & Inspection: normal respiratory effort and able to speak in complete sentences Auscultation: clear to auscultation bilaterally Cardio Other: S1-S2 present regular rate and rhythm Rate: regular rate Rhythm: regular rhythm Heart sounds: S1 normal heart sound present and S2 normal heart sound present GI Other: Normal bowel sounds soft nontender with no mass palpated Inspection: Yes normal to inspection Palpation (GI): Soft to palpation, nontender, no guarding, no hernias and no masses Auscultation: normal bowel sounds General: Yes no CVA tenderness Male General Exam: Yes normal external exam Back/Spine/Pelvis Back: no CVA tenderness Skin General skin exam: no rashes or lesions noted Neuro General: patient oriented x3, tone normal, moves all extremities, Normal light touch and pain sensation, no meningeal signs, no focal motor deficits, CN's II- XI intact bilaterally and normal sensation to monofilament Cognition (Neuro): normal cognition Gait exam (Neuro): Normal gait present Sensory Exam: No Sensory deficit (Neuro) Extrem General: Yes full ROM, Yes no joint enlargement and Yes no clubbing, cyanosis or edema Psych Appearance: grossly normal and well kempt Mental Status: mental status grossly normal Speech and movement: Normal speech and movement present Affect: normal affect Thought process: Normal thought process present Thought content: Normal thought content present Assessment and Plan Assessment & Plan (1) Annual visit for general adult medical examination with abnormal findings: Code(s): Z00.01 - Encounter for general adult medical examination with abnormal findings Plan: Will check appropriate labs. Continue with dental visit every 6 months and regular eye exams,. Take adequate calcium in diet and vitamin-D 3 at 2000 IU per cap once a day, in addition to weight-bearing exercises to help maintain good muscle tone and weight control. Instructed to do self-testicular exam check for any mass. Up-to-date with his colonoscopy. Reminded to get his yearly flu shot and COVID vaccine booster (2) TMJ (temporomandibular joint disorder): Code(s): M26.609 - Unspecified temporomandibular joint disorder, unspecified side Plan: Referred by [place] dentist to maxillofacial surgeon (3) Advanced directives, counseling/discussion: Code(s): Z71.89 - Other specified counseling Plan: Initiated the conversation about Advanced Directives. Advanced Directives help patients prepare for current and future decisions about their medical treatment and place of care. Discussed with patient that it is a process where a patients current condition and prognosis are reviewed, their wishes for information regarding their illness are elicited, and likely medical dilemmas are presented and options discussed. Healthcare proxy form completed today, and can be amended as needed, reviewed yearly and make changes as needed Orders: Orders Alanine Aminotransferase 02/18/24 Z00.01 - Encounter for general adult medical examination with abnormal findings, Z13.1 - Encounter for screening for diabetes mellitus, Z13.220 - Encounter for screening for lipoid disorders Basic Metabolic Panel Fasting 02/18/24 Z00.01 - Encounter for general adult medical examination with abnormal findings, Z13.1 - Encounter for screening for diabetes mellitus, Z13.220 - Encounter for screening for lipoid disorders Aspartate Amino Transferase 02/18/24 Z00.01 - Encounter for general adult medical examination with abnormal findings, Z13.1 - Encounter for screening for diabetes mellitus, Z13.220 - Encounter for screening for lipoid disorders Lipid Panel 02/18/24 Z00.01 - Encounter for general adult medical examination with abnormal findings, Z13.1 - Encounter for screening for diabetes mellitus, Z13.220 - Encounter for screening for lipoid disorders Coding Level of Care Code Est Pt Prev Care 40-64y(32447) Diagnoses Annual visit for general adult medical examination with abnormal findings Z00. TMJ (temporomandibular joint disorder) M26.609 Advanced directives, counseling/discussion Z71.89 Additional Codes DEMOND-7 Assessment Billing - DEMOND-7 Assessment Tool: DEMOND-7 Assessment 57972 ([id number]) Vital Signs *Quality* - Advance Care Planning discussion: Completed/Scanned ([id number]) Vital Signs *Quality* - Time spent: 16-45 minutes ([id number])
[2024-02-17 12:46] VITALS: BP 110/70; PULSE 72; O2SAT 98; BMI 25.1
== END 2024-02-17 13:26 | disposition home or self-care (01) ==
PROVIDERS: PCP Internal Medicine; Visit Provider Internal Medicine
DX: Z00.01 Encounter for general adult medical examination with abnormal findings (principal); M26.609 Unspecified temporomandibular joint disorder, unspecified side; Z71.89 Other specified counseling; Z00.00 Encounter for general adult medical examination without abnormal findings

== ENCOUNTER → 2024-02-17 12:25 | Outpatient (BNVA) | payer OTHER, SELFPAY | PROVIDERS: PCP Internal Medicine; Visit Provider Internal Medicine | DX: Z00.01 Encounter for general adult medical examination with abnormal findings (principal); M26.609 Unspecified temporomandibular joint disorder, unspecified side; Z71.89 Other specified counseling | CPT/HCPCS: 96127; 99497 ==

== ENCOUNTER 2024-02-18 07:28 | Outpatient (REF) | payer OTHER, SELFPAY ==
[2024-02-18 11:01] LABS: Alanine Aminotransferase 19 U/L (0-40); Anion Gap 7 (12-20); Aspartate Amino Transferase 19 U/L (5-37); Blood Urea Nitrogen 13 mg/dL (9-16); Calcium 9.6 mg/dL (8.4-10.2); Carbon Dioxide 31 mmol/L (22-29); Chloride 107 mmol/L (96-108); Cholesterol 151 mg/dL (<200); Estimated Glomerular Filt Rate > 60; Glucose Fasting 96 mg/dL (60-99); HDL Cholesterol 45 mg/dL (>40); LDL Cholesterol Calculated 95 mg/dL (<100); Potassium 4.1 mmol/L (3.3-5.1); Sodium 141 mmol/L (135-145); Triglycerides 58 mg/dL (<150)
== END 2024-02-18 07:29 | disposition home or self-care (01) ==
LOC: HO.HMGCLDS 07:28
PROVIDERS: PCP Internal Medicine; Visit Provider Internal Medicine
DX: Z00.01 Encounter for general adult medical examination with abnormal findings (principal); Z13.220 Encounter for screening for lipoid disorders; Z13.1 Encounter for screening for diabetes mellitus
CPT/HCPCS: 36415; 80048; 80061; 84450; 84460

== ENCOUNTER 2024-06-18 09:37 | Outpatient (AMB) | payer OTHER, SELFPAY ==
--- NOTE | 2024-06-18 09:35 | A.OFFPC_ITS ---
Intake Visit Reasons: Anxiety attacks Intake Note: Pt is having a telehealth visit to request rx for anxiety Allergies Penicillins [PCN] Allergy (Verified 06/18/24 10:05) Rash Medication List - Last Reconciled 06/18/24 by Cleo Shell MD loratadine 10 mg PO DAILY PRN Tobacco use date assessed: 06/18/24 Dental Screening Dental Screen Date: 06/18/24 Did you have a dental visit in the last 12 months?: Yes Did you have a dental problem in the last 6 months where you did not have access to dental care?: Yes Was dental information given to patient?: Patient has dentist HPI HPI Comments History of Present Illness Details 48-year-old male here today for follow-u p. Has been having frequent anxiety attacks, which has led to severe bruxism, now has TMJ dysfunction for which he has been referred by his dentist for physical therapy for TMJ dysfunction. He was previously taking anxiety medicine in the past, and would like to see if he can be placed back on something to control his anxiety disorder. [facility] Medical History (Updated 06/18/24 @ 10:14 by Cleo Shell MD) Bruxism (teeth grinding) Generalized anxiety disorder TMJ (temporomandibular joint disorder) Lumbago Bulging of lumbar intervertebral disc without myelopathy Aftercare following right shoulder joint replacement surgery Acute low back pain due to spinal disorder Degenerative disc disease, lumbar Superior labrum mxfrrjnl-zd-zxnvmddeu (SLAP) tear of right shoulder Surgical History Skin lesion of right leg Hx of colonoscopy H/O shoulder surgery H/O eye surgery Family History Mother Hypertension Family/Other Substance use disorder Social History Housing: House Alcohol intake: never Patient Tobacco Use Status: Former Tobacco user Tobacco use type: Cigarette Years Smoked: 10 e-Cigarette/Vaping Use: Never Used Second Hand Smoke Exposure: No service: Yes Current occupational status: employed Current occupational exposures/hazards: Yes Cognitive needs: No Hearing needs: No Vision needs: No Questionnaire PHQ-9 Over the last 2 weeks, how often have you been bothered by any of the following problems? 1. Little interest or pleasure in doing things: not at all 2. Feeling down, depressed, or hopeless: not at all 3. Trouble falling or staying asleep, or sleeping too much: not at all 4. Feeling tired or having little energy: not at all 5. Poor appetite or overeating: not at all 6. Feeling bad about yourself - or that you are a failure or have let yourself or your family down: not at all 7. Trouble concentrating on things, such as reading the newspaper or watching television: not at all 8. Moving or speaking so slowly that other people could have noticed. Or the opposite - being so fidgety or restless that you have been moving around a lot more than usual: not at all 9. Thoughts that you would be better off or of hurting yourself in some way: not at all Total score: 0 Depression Screening Interpretation: Negative Depression Screening Done: Yes 42040 - PHQ-9 Billing: Yes Source: Developed by Drs. Guilherme Marie, Lydia Fisher, Oscar Rockwell and colleagues, with an educational anne marie from [employer]. Thrive Questionnaire Date Thrive assessed: 02/17/24 AUDIT C Alcohol Use Questionnaire (AUDIT-C) 1. How often do you have a drink containing alcohol?: Never Total Score: 0 DEMOND-7 AMB Questionnaire DEMOND-7 Date DEMOND - 7 assessed: 06/18/24 Feeling nervous, anxious, or on edge: 1 = Several days Not being able to stop or control worryin = Several days Worrying too much about different things: 0 = Not at all Trouble relaxin = Several days Being so restless that it is hard to sit still: 1 = Several days Becoming easily annoyed or irritable: 0 = Not at all Feeling afraid as if something awful might happen: 0 = Not at all Total DEMOND-7 score (0-4 normal; 5-9 mild; 10-14 moderate; 15-21 severe): 4 Source: Developed by Drs. Guilherme Marie, Lydia Fisher, Oscar Rockwell and colleagues, with an educational anne marie from [employer]. DEMOND-7 Assessment Billing DEMOND-7 Assessment Tool: DEMOND-7 Assessment 92159 Review of Systems Const Denies fatigue, Denies fever(s), Denies headache(s) and Denies weakness Eyes Details: Goes to [facility] in [place] ENT Denies dizziness, Denies headache(s), Denies nasal congestion and Denies nasal discharge Card Denies chest pain, Denies lightheadedness, Denies palpitations and Denies dyspnea Resp Denies chest congestion, Denies cough and Denies dyspnea GI Denies abdominal pain, Denies change in bowel habits and Denies heartburn Neuro Denies dizziness, Denies headache(s), Denies Sensory deficit (Neuro) and Denies weakness Psych Reports as per HPI Endo Denies fatigue, Denies polydipsia, Denies polyuria and Denies palpitations Physical exam (Primary Care) Tobacco/Smoking Status: Tobacco use Status Tobacco use date assessed 06/18/24 06/18/24 09:37 Patient Tobacco Use Status Former Tobacco user 06/18/24 09:37 Tobacco use type Cigarette 06/18/24 09:37 e-Cigarette/Vaping Use Never Used 06/18/24 09:37 PHQ-9: PHQ-9 Score PHQ-9: Total score 0 06/18/24 10:06 Depression Screening Interpretation: Negative Thrive Assessment: Date of Thrive Assessment Date Thrive assessed 02/17/24 06/18/24 09:37 Neuro Sensory Exam: No Sensory deficit (Neuro) Telehealth Telehealth Telehealth Platform: [facility] Location of provider rendering services: practice address Patient Identification confirmed using: Name, : Yes Telehealth method: video Patient verbally consented to treatment: Yes Patient verbally consented to billing insurance company: Yes Patient informed of any privacy concerns related to visit: Yes Minutes spent on Phone/Video with Pt.: 15 Coding Level of Care Code Tele Est Pt Level 3 (40869) Diagnoses Generalized anxiety disorder F41.1 Bruxism (teeth grinding) F45.8 TMJ (temporomandibular joint disorder) M26.609 Additional Codes PHQ-9 - 11475 - PHQ-9 Billing: Yes ([id number]) DEMOND-7 Assessment Billing - DEMOND-7 Assessment Tool: DEMOND-7 Assessment 89283 ([id number]) Assessment & Plan Assessment & Plan (1) Generalized anxiety disorder: Code(s): F41.1 - Generalized anxiety disorder Category: Medical Plan: Will start on sertraline 50 mg per tablet, initially start taking only half a tablet or 25 mg once a day for the 1st week, and if no no improvement with contr olling anxiety, go and increase dose to 50 mg once a day on the 2nd week. See him back for follow-up by telehealth again in 4 weeks after starting sertraline (2) Bruxism (teeth grinding): Code(s): F45.8 - Other somatoform disorders Category: Medical Plan: Has been referred for physical therapy. (3) TMJ (temporomandibular joint disorder): Code(s): M26.609 - Unspecified temporomandibular joint disorder, unspecified side Category: Medical Plan: Has been referred to [facility] physical therapy per patient request Medications: New sertraline 50 mg PO DAILY 30 tabs 1RF
== END 2024-06-18 11:00 | disposition home or self-care (01) ==
LOC: HO.HMCC 09:37
PROVIDERS: PCP Internal Medicine; Visit Provider Internal Medicine
DX: F41.1 Generalized anxiety disorder (principal); F45.8 Other somatoform disorders; M26.609 Unspecified temporomandibular joint disorder, unspecified side

== ENCOUNTER → 2024-06-18 09:37 | Outpatient (BNVA) | payer OTHER, SELFPAY | PROVIDERS: PCP Internal Medicine; Visit Provider Internal Medicine | DX: F41.1 Generalized anxiety disorder (principal); F45.8 Other somatoform disorders; M26.609 Unspecified temporomandibular joint disorder, unspecified side | CPT/HCPCS: 96127 ==

== ENCOUNTER 2024-07-16 08:25 | Outpatient (AMB) | payer OTHER, SELFPAY ==
--- NOTE | 2024-07-16 08:24 | A.OFFPC_ITS ---
Intake Visit Reasons: 4 weeks f/u anxiety Allergies Penicillins [PCN] Allergy (Verified 07/16/24 08:37) Rash Medication List - Last Reconciled 07/16/24 by Cleo Shell MD loratadine 10 mg PO DAILY PRN sertraline 50 mg PO DAILY Tobacco use date assessed: 07/16/24 Dental Screening Dental Screen Date: 06/18/24 HPI 4 weeks f/u anxiety HPI Details The patient is a 48-year-old male presenting with medication management for she has generalized anxiety disorder. - Taking sertraline , initially started at 25 mg daily and developed some mild nausea after the 1st couple of days of taking it but hold and now is on 50 mg daily which he is tolerating well. - Mood improvement noted, even noticed b y , but would like to see if he can go a little higher on his dose. Not currently seeing a therapist, looking for new one, [facility] Medical History Bruxism (teeth grinding) Generalized anxiety disorder TMJ (temporomandibular joint disorder) Lumbago Bulging of lumbar intervertebral disc without myelopathy Aftercare following right shoulder joint replacement surgery Acute low back pain due to spinal disorder Degenerative disc disease, lumbar Superior labrum mcanquas-vz-urkhaiocb (SLAP) tear of right shoulder Surgical History Skin lesion of right leg Hx of colonoscopy H/O shoulder surgery H/O eye surgery Family History Mother Hypertension Family/Other Substance use disorder Social History Housing: House Alcohol intake: never Patient Tobacco Use Status: Former Tobacco user Tobacco use type: Cigarette Years Smoked: 10 e-Cigarette/Vaping Use: Never Used Second Hand Smoke Exposure: No service: Yes Current occupational status: employed Current occupational exposures/hazards: Yes Cognitive needs: No Hearing needs: No Vision needs: No Questionnaire PHQ-9 Over the last 2 weeks, how often have you been bothered by any of the following problems? 1. Little interest or pleasure in doing things: not at all 2. Feeling down, depressed, or hopeless: not at all 3. Trouble falling or staying asleep, or sleeping too much: not at all 4. Feeling tired or having little energy: not at all 5. Poor appetite or overeating: not at all 6. Feeling bad about yourself - or that you are a failure or have let yourself or your family down: not at all 7. Trouble concentrating on things, such as reading the newspaper or watching television: not at all 8. Moving or speaking so slowly that other people could have noticed. Or the opposite - being so fidgety or restless that you have been moving around a lot more than usual: not at all 9. Thoughts that you would be better off or of hurting yourself in some way: not at all Total score: 0 Depression Screening Interpretation: Negative Depression Screening Done: Yes 57220 - PHQ-9 Billing: Yes Source: Developed by Drs. Guilherme Marie, Lydia Fisher, Oscar Rockwell and colleagues, with an educational anne marie from [employer]. Thrive Questionnaire Date Thrive assessed: 07/16/24 I am a: Patient What is your living situation today?: I have a steady place to live Within the past 12 months, did the food you bought not last and you didn't have the money to get more?: Never true Within the past 12 months, did you worry whether your food would run out before you got money to buy more?: Never true Do you have trouble paying for medicines?: No Do you have trouble getting transportation to medical appointments?: No Do you have trouble paying your heating and electricity bill?: No Do you have trouble taking care of your child, family member or friend?: No Do you have trouble with day-to-day activities such as bathing, preparing meals, shopping, managing finances, etc.?: No Are you currently unemployed and looking for a job?: No Are you interested in more education?: No THRIVE Score: 0 AUDIT C Alcohol Use Questionnaire (AUDIT-C) 1. How often do you have a drink containing alcohol?: Never Total Score: 0 DEMOND-7 AMB Questionnaire DEMOND-7 Date DEMOND - 7 assessed: 07/16/24 Feeling nervous, anxious, or on edge: 1 = Several days Not being able to stop or control worryin = Several days Worrying too much about different things: 0 = Not at all Trouble relaxin = Several days Being so restless that it is hard to sit still: 1 = Several days Becoming easily annoyed or irritable: 0 = Not at all Feeling afraid as if something awful might happen: 0 = Not at all Total DEMOND-7 score (0-4 normal; 5-9 mild; 10-14 moderate; 15-21 severe): 4 Source: Developed by Drs. Guilherme Marie, Lydia Fisher, Oscar Rockwell and colleagues, with an educational anne marie from [employer]. DEMOND-7 Assessment Billing DEMOND-7 Assessment Tool: DEMOND-7 Assessment 56587 Review of Systems Const Denies fatigue, Denies fever(s), Denies headache(s) and Denies weakness Eyes Details: Goes to [facility] in [place] ENT Denies dizziness, Denies headache(s), Denies nasal congestion and Denies nasal discharge Card Denies chest pain, Denies lightheadedness, Denies palpitations and Denies dyspnea Resp Denies chest congestion, Denies cough and Denies dyspnea GI Denies abdominal pain, Denies change in bowel habits and Denies heartburn Reports no additional complaints Neuro Denies dizziness, Denies headache(s), Denies Sensory deficit (Neuro) and Denies weakness Psych Reports as per HPI Endo Denies fatigue, Denies polydipsia, Denies polyuria and Denies palpitations Physical exam (Primary Care) Tobacco/Smoking Status: Tobacco use Status Tobacco use date assessed 07/16/24 07/16/24 08:24 Patient Tobacco Use Status Former Tobacco user 07/16/24 08:24 Tobacco use type Cigarette 07/16/24 08:24 e-Cigarette/Vaping Use Never Used 07/16/24 08:24 PHQ-9: PHQ-9 Score PHQ-9: Total score 0 07/16/24 08:27 Depression Screening Interpretation: Negative Thrive Assessment: Date of Thrive Assessment Date Thrive assessed 07/16/24 07/16/24 08:27 Neuro Sensory Exam: No Sensory deficit (Neuro) Telehealth Telehealth Telehealth Platform: [facility] Location of provider rendering services: practice address Location of patient: address on file Patient Identification confirmed using: Name, : Yes Telehealth method: video Patient verbally consented to treatment: Yes Patient verbally consented to billing insurance company: Yes Patient informed of any privacy concerns related to visit: Yes Minutes spent on Phone/Video with Pt.: 15 Coding Level of Care Code Tele Est Pt Level 3 (54515) Diagnoses Generalized anxiety disorder F41.1 Additional Codes DEMOND-7 Assessment Billing - DEMOND-7 Assessment Tool: DEMOND-7 Assessment 88505 ([id number]) PHQ-9 - 01016 - PHQ-9 Billing: Yes ([id number]) Assessment & Plan Assessment & Plan (1) Generalized anxiety disorder: Code(s): F41.1 - Generalized anxiety disorder Category: Medical Plan: The patient will adjust sertraline dosage to 75 mg once a day., use a pill cutter ensuring proper tablet division to avoid dosing inaccuracies. A telehealth follow-up in six weeks has been arranged. The patient is instructed to monitor and report any changes in symptoms or side effects, especially if considering an increase to 100 mg. [facility] through [facility] is suggested due to a lack of current therapeutic support locally. Patient was informed and verbally consented to the use of an ambient scribe for clinic note documentation during this visit. Medications: Changed From sertraline 50 mg PO DAILY 30 tabs 1RF To sertraline 75 mg (1.5 x 50 mg) PO DAILY 60 days 90 tabs 0RF
--- OUTSIDE RECORDS SUMMARY | 2024-07-16 08:42 | XMS_ITS | Continuity of Care Document ---
Author Name [facility] Organization [facility] Care Team Providers Care Vp Care Management Name Role Phone [facility] Unavailable Unavailable Problems Combined list of problems from Department of Defense and Veterans Affairs facilities. It does not include entries that were removed or entered in error. Problem Status Onset Date Problem Type Date of Resolution Comments Source Arthralgia of shoulder Active 8 Condition Nov 11, 2017 Entered By: KELLY LUEVANO Comment: better after right shoulder surgery and physical therapy [facility] muscle weakness Active 7 Condition [facility] joint pain, localized in the shoulder Active 7 Condition [facility] joint pain, localized in the left shoulder Inactive 7 Condition [facility] shoulder impingement left Active 7 Condition [facility] joint pain, localized in the right shoulder Active 7 Condition [facility] joint pain, localized in the knee Inactive 7 Condition Do[facility] allergic rhinitis Active 7 Condition DoD History of deployment Active Condition [facility] Need For Vaccination Hepatitis B Inactive Condition [facility] Observation For Suspected Condition Inactive Condition DoD visit for: services physical pre-deployment Active Condition [facility] visit for: new patient eye exam Inactive Condition [facility] Vaccines Prophylactic Need Inactive Condition [facility] visit for: ears / hearing exam Active Condition [facility] visit for: services physical Active Condition DoD Medications Combined list of outpatient medications from Department of Defense and Veterans Affairs facilities.Medications provided include 1) outpatient medications from the last 15 months, and 2) patient-reported medications. Medication Details Route Status Patient Instructions Prescription Expires Prescription Number Last Dispense Date Ordering Provider Order Date Order Qty Source ALBUTEROL SULFATE HFA (albuterol sulfate), 90 MCG, HFA AER AD, INHALATION, LUPIN PHARMACEU, 8.5 g CANISTER Cancele d [id number] : 2023 0 Pharmac y Data Transac tion Service Facilit y FEXOFENADIN E HCL 60MG TAB TAKE ONE TABLET BY MOUTH EVERY DAY NEEDED ORAL ACTIVE GRABIEL LUEVANO 2017 [facility] PAXLOVID (EUA) (nirmatrelv ir/ritonavi r), 300-100 MG, TAB DS PK, ORAL, PFIZER LABS., 30 ea. BLIST PACK Active [id number] 2022 30 Pharmac y Data Transac tion Service Facilit y Allergies, Adverse Reactions, Alerts Combined list of allergies from Department of Defense and Veterans Affairs facilities. It does not include entries that were removed or entered in error. Substance Category Reaction Severity Reaction type Status Date Reported Comments Source Amoxicillin Drug allergy (disorder) Eruption of skin active 8 [facility] AMOXICILLIN Propensity to adverse reactions to drug (finding) Eruption [facility] 8 [facility] Immunizations Combined list of available immunizations from the Department of Defense and Veterans Affairs facilities. Immunization Series Date Given Administered By Site Reaction Lot Number CVX Code Drug Flap Presser Status Comments Source INFLUENZA, SEASONAL, INJECTABLE 2016 141 complet ed [facility] poliovirus vaccine, inactivated 1 2010 [id number] [employer] ([facility]) complet ed polioviru s vaccine, inactivat ed DoD hepatitis A and hepatitis B vaccine 1 2010 [id number] [employer] Paste[employer] ([facility]) complet ed hepatitis A and hepatitis B vaccine DoD meningococcal polysaccharid e (groups A, C, Y and W-135) diphtheria toxoid conjugate vaccine (MCV4P) 2010 [id number] Sanofi Paste[employer] ([facility]) complet ed meningoco ccal polysacch aride (groups A, C, Y and W-135) diphtheri a toxoid conjugate vaccine (MCV4P) DoD tetanus toxoid, reduced diphtheria toxoid, and acellular pertu is vaccine, adsorbed 2010 [id number] 115 Sanofi Pasteur ([facility]) complet ed tetanus toxoid, reduced diphtheri a toxoid, and acellular pertussis vaccine, adsorbed DoD measles, mumps and rubella virus vaccine 1 2010 UNK 03 Unknown (UNK) Not Given measles, mumps and rubella virus vaccine DoD varicella virus vaccine 1 2010 UNK 21 Unknown (UNK) Not Given varicella virus vaccine DoD influenza virus vaccine, live, attenuated, for intranasal use 1 2009 [id number] Unknown (UNK) comple t ed influenza virus vaccine, live, attenuate d, for intranasa l use DoD Encounters Combined list of: 1) Encounters from Department of Veterans Affairs facilities going backup to the last 18 months, not all VA inpatient encounters are included; 2) Encounters from the Department of Defense facilities going backup to 280 months. Location Location Details Encounter Type Encounter Number Reason For Visit Attending Provider ADM Date DC Date Status Disposition Source [facility] [place]) OUTPATIENT [id number] [facility] ERIN ROSSI 06/13 Released w/o Limitations [facility] [place] [facility] [place]) OUT[place] [id number] [facility] NIKKI SHETH 06/19 Released w/o Limitations [facility] [place] [facility] [place]PAT[place] [id number] [facility]AN 07/02 Released w/o Limitations [facility] [place] [facility] [place]) [place] [id number] NELY JEROME 07/24 Released w/o Limitations [facility] [place] [facility] [place]) [place]IENT [id number] [facility] LILLIE MARK 08/06 Released w/o Limitations [facility] [place] [facility] [place] OUTPATIENT [id number] Notes Entered by: Brook SARAH 27 Aug 2016 0927 ------- ------- ------- ------- -- IRAIS Craig 08/27 Released w/o Limitations [facility] [place]) [facility] [place] OUTPATIENT [id number] Notes Entered by: MELONY CHRISTOPHER 30 Aug 2016 0750 ------- ------- ------- ------- -- ABHAY SARKAR 08/30 Released w/o Limitations [facility] [place]([facility]) [facility] OUTPATIENT [id number] Theater Provider 11/12 Released w/o Limitations [facility] OUTPATIENT [id number] Theater Provider 12/16 Released w/o Limitations [facility] OUTPATIENT [id number] Theater Provider 12/24 Released w/o Limitations [facility] OUTPATIENT [id number] Theater Provider 01/13 Released w/o Limitations [facility] OUTPATIENT [id number] Theater Provider 01/22 Released w/o Limitations [facility] OUTPATIENT [id number] Theater Provider 01/22 Released w/o Limitations [facility] OUTPATIENT [id number] Theater Provider 04/15 Released w/o Limitations [facility] OUTPATIENT [id number] Theater Provider 04/15 Released w/o Limitations [facility] OUTPATIENT [id number] Theater Provider 05/18 Released w/o Limitations [facility] OUTPATIENT [id number] Theater Provider 05/20 Released w/o Limitations [facility] OUTPATIENT [id number] Theater Provider 05/25 Released w/o Limitations [facility] OUTPATIENT [id number] Theater Provider 05/27 Released w/o Limitations [facility] OUTPATIENT [id number] Theater Provider 05/29 Released w/o Limitations [facility] OUTPATIENT [id number] Theater Provider 06/03 Released w/o Limitations [facility] OUTPATIENT [id number] Theater Provider 06/05 Released w/o Limitations Theater Facilit y [facility] [place]) OUTPATIENT [id number] Notes Entered by: DUGLAS BUCKLEY 08 Jul 2017 0717 ------- ------- ------- ------- -- JIM YUEN 07/08 Released w/o Limitations [facility] [place]([facility] ) [facility] [place] OUTPATIENT [id number] Notes Entered by: Jes DENTON 08 Jul 2017 0830 ------- ------- ------- ------- -- NASRIN SOFIA 07/08 Released w/o Limitations [facility] [place]) [facility] [place] OUTPATIENT [id number] YARON ROSALES 07/11 Released w/o Limitations [facility] [place]) Procedures Combined list of: 1) Procedures from Department of Veterans Affairs facilities going back up to thelast 18 months, not all VA non-surgical procedures are included; 2) All procedures from the Department of Defense facilities. Procedure Procedure Type Code Date Perfomer Comments Sourc e ADMINISTRATION OF PATIENT-FOCUSED HEALTH RISK ASSESSMENT INSTRUMENT (EG, HEALTH HAZARD APPRAISAL) WITH SCORING AND DOCUMENTATION, PER STANDARDIZED INSTRUMENT 07/08/2017 [facility] PURE TONE AUDIOMETRY (THRESHOLD), AUTOMATED; AIR ONLY 07/08/2017 [facility] FITTING OF SPECTACLES, EXCEPT FOR APHAKIA; MONOFOCAL 08/30/2016 [facility] TYPHOID VACCINE, CAPSULAR POLYSACCHARIDE (VICPS), FOR INTRAMUSCULAR USE 08/27/2016 [facility] HEPATITIS A AND HEPATITIS B VACCINE (HEPA-HEPB), ADULT DOSAGE, FOR INTRAMUSCULAR USE 08/06/2010 [facility] DETERMINATION OF REFRACTIVE STATE 07/02/2010 [facility] IMMUNIZATION ADMINISTRATION (INCLUDES PERCUTANEOUS, INTRADERMAL, SUBCUTANEOUS, OR INTRAMUSCULAR INJECTIONS); EACH ADDITIONAL VACCINE (SINGLE OR COMBINATION VACCINE/TOXOID) 06/19/2010 [facility] PATIENT EDUCATION, NOT OTHERWISE CLASSIFIED, NON-PHYSICIAN PROVIDER, GROUP, PER SESSION 06/13/2010 [facility] Preventive Medicine Administration Of Health Risk Questionnaire Patient-Focused Preventive Medicine Administration Of Health Risk Questionnaire Patient-Focused 01106 07/08/2017 NASRIN FERNANDEZ [facility] Threshold Audiogram (Pure Tone) Automated Threshold Audiogram (Pure Tone) Automated [id number] 07/08/2017 JIM MADRIGAL [facility] Physical Therapy Neuromuscular Re-education Physical Therapy Neuromuscular Re-education 36597 06/05/2017 Theater Provider [facility] Physical Therapy: ___ Se ion Segments, 15 Minutes Each Physical Therapy: ___ Session Segments, 15 Minutes Each 12836 06/05/2017 Theater Provider DoD Physical Therapy: ___ Se ion Segments, 15 Minutes Each Physical Therapy: ___ Session Segments, 15 Minutes Each 87110 06/04/2017 Theater Provider [facility] Physical Therapy Neuromuscular Re-education Physical Therapy Neuromuscular Re-education 09431 06/04/2017 Theater Provider [facility] Physical Therapy Neuromuscular Re-education Physical Therapy Neuromuscular Re-education 92499 06/03/2017 Theater Provider [facility] Physical Therapy: ___ Se ion Segments, 15 Minutes Each Physical Therapy: ___ Session Segments, 15 Minutes Each [id number] 06/03/2017 Theater Provider [facility] Physical Therapy: ___ Se ion Segments, 15 Minutes Each Physical Therapy: ___ Session Segments, 15 Minutes Each 90413 05/28/2017 Theater Provider [facility] Physical Therapy Neuromuscular Re-education Physical Therapy Neuromuscular Re-education 65402 05/28/2017 Theater Provider [facility] Physical Therapy Service Re-Evaluation Physical Therapy Service Re-Evaluation 11758 05/25/2017 Theater Provider [facility] Physical Therapy Mobilization Joint Physical Therapy Mobilization Joint 40471 05/25/2017 Theater Provider [facility] Physical Therapy: ___ Se ion Segments, 15 Minutes Each Physical Therapy: ___ Session Segments, 15 Minutes Each 72211 05/21/2017 Theater Provider [facility] Physical Therapy Neuromuscular Re-education Physical Therapy Neuromuscular Re-education 27783 05/21/2017 Theater Provider [facility] Physical Therapy: ___ Se ion Segments, 15 Minutes Each Physical Therapy: ___ Session Segments, 15 Minutes Each 03227 05/18/2017 Theater Provider [facility] Physical Therapy Service Re-Evaluation Physical Therapy Service Re-Evaluation 15616 01/22/2017 Theater Provider [facility] Mobilization Soft Ti ue Mobilization Soft Tissue 16165 01/22/2017 Theater Provider [facility] Physical Therapy: ___ Se ion Segments, 15 Minutes Each Physical Therapy: ___ Session Segments, 15 Minutes Each 69995 01/22/2017 Theater Provider [facility] Osteopathic Manip Treatment (OMT) 1-2 Body Regions Involved Osteopathic Manip Treatment (OMT) 1-2 Body Regions Involved 09048 01/22/2017 Theater Provider [facility] Spectacles Services Fitting Monofocal Except For Aphakia Spectacles Services Fitting Monofocal Except For Aphakia 53712 08/30/2016 PETE CHRISTOPHER Typhoid Vaccine Vi Capsular Polysaccharide, For Intramus Use Typhoid Vaccine Vi Capsular Polysaccharide, For Intramus Use 20514 08/27/2016 IRAIS MOREAU Anthrax Vaccine For Subcutaneous Or Intramuscular Use Anthrax Vaccine For Subcutaneous Or Intramuscular Use 51195 08/27/2016 IRAIS MOREAU Hepatitis A And Hepatitis B (Intramuscular Use) Adult Dosage Hepatitis A And Hepatitis B (Intramuscular Use) Adult Dosage 77812 08/07/2010 JESE NINA Immunization Administration By Injection, One Vaccine Immunization Administration By Injection, One Vaccine 78703 08/07/2010 JESE NINA Screening Test Of Visual Acuity, Quantitative, Bilateral Screening Test Of Visual Acuity, Quantitative, Bilateral 45223 07/02/2010 CATHY COLE [facility] Fitting Monofocal Except For Aphakia Spectacles Services Fitting Monofocal Except For Aphakia 83148 07/02/2010 CATHY COLE Determination Of Refractive State Determination Of Refractive State 90365 07/02/2010 CATHY COLE Ear Protector Attenuation Measurements Ear Protector Attenuation Measurements 73788 06/13/2010 ERIN ROSSI Audiometry Group Testing Audiometry Group Testing 76436 06/13/2010 ERIN ROSSI Patient education, not otherwise cla ified, non-physician provider, group, per se ion 06/13/2010 ERIN ROSSI Social History Combined list of available smoking, tobacco, and other social history from Department of Defense and Veterans Affairs facilities. Social History Type Response Date Comment Sourc e Tobacco smoking status NHIS VA-TOBACCO QUIT 15 YRS OR MORE 01/12/2019 [facility] History of tobacco use VA-TOBACCO FORMER USER 01/12/2019 [facility] History of tobacco use LIFETIME NON-TOBACCO USER 11/11/2017 [facility] This section is an empty social history section. DoD
== END 2024-07-16 09:58 | disposition home or self-care (01) ==
LOC: HO.HMCC 08:25
PROVIDERS: PCP Internal Medicine; Visit Provider Internal Medicine
DX: F41.1 Generalized anxiety disorder (principal)

== ENCOUNTER → 2024-07-16 08:25 | Outpatient (BNVA) | payer OTHER, SELFPAY | PROVIDERS: PCP Internal Medicine; Visit Provider Internal Medicine | DX: F41.1 Generalized anxiety disorder (principal) | CPT/HCPCS: 96127 ==

== ENCOUNTER 2024-08-13 10:06 | Outpatient (AMB) | payer OTHER, SELFPAY ==
--- NOTE | 2024-08-13 10:15 | A.SPINEOV_ITS ---
Intake Visit Reasons: severe back pain Intake Note: Mr. Richards is here today c/o severe back pain. Office Employee Required: No Allergies Penicillins [PCN] Allergy (Verified 07/16/24 08:37) Rash Assessment & Plan Assessment & Plan (1) Back pain: Code(s): M54.9 - Dorsalgia, unspecified Category: Medical Plan Mr Richards is here in follow-up. This is a gentleman we know from a previous visit about a year and a half ago where he had a left lower back pain that resolved on its own. About a week ago or so he was bending forward to tie his shoes and felt a pull in the right side of his low back toward the center. No radicular pain down the legs, tingling numbness weakness or cauda equina symptoms. He has been taking Tylenol and Advil. He has been trying to rest it. Still very uncomfortable. It localizes itself over the right side of his low back. His gait is normal. I reassured him that it sounds like another muscular strain, possible tendon strain etc.. We should start with the physical therapy exercises that he did last time which seemed to fix the problem. He knows how to do them at home but I gave him a prescription for physical therapy to formally do the exercises if the home routine does not working. He will let me know how it goes and if he is no better in 6 weeks we can get an MRI. Total amount of time spent in this visit was 20 minutes in discussion of symptoms, and subsequent plan of care Kaushal Hayes MD,PhD [facility] Orders: Orders PT Evaluation and Treatment Today M54.9 - Dorsalgia, unspecified Coding Level of Care Code Est Pt Level 3 (97221) Diagnoses Back pain M54.9
--- OUTSIDE RECORDS SUMMARY | 2024-08-13 11:21 | XMS_ITS | Continuity of Care Document ---
Author Name [facility] Organization [facility] Care Team Providers Care Parts Sales Representative Name Role Phone [facility] Unavailable Unavailable Problems Combined list of problems from Department of Defense and Veterans Affairs facilities. It does not include entries that were removed or entered in error. Problem Status Onset Date Problem Type Date of Resolution Comments Source Arthralgia of shoulder Active 8 Condition Nov 11, 2017 Entered By: EMIGDIO LUEVANO Comment: better after right shoulder surgery and physical therapy [facility] History of deployment Active Condition [facility] Medications Combined list of outpatient medications from Department of Defense and Veterans Affairs facilities.Medications provided include 1) outpatient medications from the last 15 months, and 2) patient-reported medications. Medication Details Route Status Patient Instructions Prescription Expires Prescription Number Last Dispense Date Ordering Provider Order Date Order Qty Source FEXOFENADIN E HCL 60MG TAB TAKE ONE TABLET BY MOUTH EVERY DAY NEEDED ORAL ACTIVE GRABIEL LUEVANO 2017 [facility] [employer] [facility] Allergies, Adverse Reactions, Alerts Combined list of allergies from Department of Defense and Veterans Affairs facilities. It does not include entries that were removed or entered in error. Substance Category Reaction Severity Reaction type Status Date Reported Comments Source AMOXICILLIN Propensity to adverse reactions to drug (finding) Eruption active 8 [facility] Immunizations Combined list of available immunizations from the Department of Defense and Veterans Affairs facilities. Immunization Series Date Given Administered By Site Reaction Lot Number CVX Code Drug Research Pharmacist Status Comments Source INFLUENZA, SEASONAL, INJECTABLE 2016 141 complet ed [facility] [employer] [facility] Social History Combined list of available smoking, tobacco, and other social history from Department of Defense and Veterans Affairs facilities. Social History Type Response Date Comment Sourc e Tobacco smoking status NHIS GA-TOBACCO QUIT 15 YRS OR MORE 01/12/2019 [facility] History of tobacco use VA-TOBACCO FORMER USER 01/12/2019 [facility] [place] [facility] History of tobacco use LIFETIME NON-TOBACCO USER [facility] [place] [facility]
== END 2024-08-13 10:30 | disposition home or self-care (01) ==
LOC: HO.HNS 10:07
PROVIDERS: PCP Internal Medicine; Visit Provider Physician Assistant
DX: M54.9 Dorsalgia, unspecified (principal)
CPT/HCPCS: 99213

== ENCOUNTER → 2024-08-13 10:06 | Outpatient (BNVA) | payer OTHER, SELFPAY | PROVIDERS: PCP Internal Medicine; Visit Provider Physician Assistant | DX: M54.50 Low back pain, unspecified (principal) | CPT/HCPCS: 99212 ==

== ENCOUNTER 2024-08-27 08:34 | Outpatient (AMB) | payer OTHER, SELFPAY ==
--- NOTE | 2024-08-27 08:23 | A.OFFPC_ITS ---
Intake Visit Reasons: 6 weeks f/up anxiety-telehealth visit Intake Note: Pt is here having a telehealth visit to f/u anxiety Allergies Penicillins [PCN] Allergy (Verified 08/27/24 08:48) Rash Medication List - Last Reconciled 08/27/24 by Cleo Shell MD loratadine 10 mg PO DAILY PRN sertraline 100 mg PO DAILY 30 days Tobacco use date assessed: 08/27/24 Dental Screening Dental Screen Date: 08/27/24 Did you have a dental visit in the last 12 months?: Yes Did you have a dental problem in the last 6 months where you did not have access to dental care?: Yes Was dental information given to patient?: Patient has dentist HPI 6 weeks f/up anxiety-telehealth visit HPI Details 48-year-old male with history of general ized anxiety disorder currently now on sertraline at a dose of 100 mg taken once a day,, here today for follow- up via telehealth. States that his anxiety is controlled with taking sertraline 100 mg taken once a day. Denies any adverse effects from taking medication, would like to continue [facility] Medical History Bruxism (teeth grinding) Generalized anxiety disorder TMJ (temporomandibular joint disorder) Lumbago Bulging of lumbar intervertebral disc without myelopathy Aftercare following right shoulder joint replacement surgery Acute low back pain due to spinal disorder Degenerative disc disease, lumbar Superior labrum dzsrpttt-st-rrdzhjhfg (SLAP) tear of right shoulder Surgical History Skin lesion of right leg Hx of colonoscopy H/O shoulder surgery H/O eye surgery Family History Mother Hypertension Family/Other Substance use disorder Social History Housing: House Alcohol intake: never Patient Tobacco Use Status: Former Tobacco user Tobacco use type: Cigarette Years Smoked: 10 e-Cigarette/Vaping Use: Never Used Second Hand Smoke Exposure: No service: Yes Current occupational status: employed Current occupational exposures/hazards: Yes Cognitive needs: No Hearing needs: No Vision needs: No Questionnaire PHQ-9 Over the last 2 weeks, how often have you been bothered by any of the following problems? 1. Little interest or pleasure in doing things: not at all 2. Feeling down, depressed, or hopeless: not at all 3. Trouble falling or staying asleep, or sleeping too much: not at all 4. Feeling tired or having little energy: not at all 5. Poor appetite or overeating: not at all 6. Feeling bad about yourself - or that you are a failure or have let yourself or your family down: not at all 7. Trouble concentrating on things, such as reading the newspaper or watching television: not at all 8. Moving or speaking so slowly that other people could have noticed. Or the opposite - being so fidgety or restless that you have been moving around a lot more than usual: not at all 9. Thoughts that you would be better off or of hurting yourself in some way: not at all Total score: 0 Depression Screening Interpretation: Negative Depression Screening Done: Yes 47689 - PHQ-9 Billing: Yes Source: Developed by Drs. Guilherme Marie, Lydia Fisher, Oscar Rockwell and colleagues, with an educational anne marie from [employer]. Thrive Questionnaire Date Thrive assessed: 08/27/24 I am a: Patient What is your living situation today?: I have a steady place to live Within the past 12 months, did the food you bought not last and you didn't have the money to get more?: Never true Within the past 12 months, did you worry whether your food would run out before you got money to buy more?: Never true Do you have trouble paying for medicines?: No Do you have trouble getting transportation to medical appointments?: No Do you have trouble paying your heating and electricity bill?: No Do you have trouble taking care of your child, family member or friend?: No Do you have trouble with day-to-day activities such as bathing, preparing meals, shopping, managing finances, etc.?: No Are you currently unemployed and looking for a job?: No Are you interested in more education?: No THRIVE Score: 0 AUDIT C Alcohol Use Questionnaire (AUDIT-C) 1. How often do you have a drink containing alcohol?: Never Total Score: 0 DEMOND-7 AMB Questionnaire DEMOND-7 Date DEMOND - 7 assessed: 08/27/24 Feeling nervous, anxious, or on edge: 0 = Not at all Not being able to stop or control worryin = Not at all Worrying too much about different things: 0 = Not at all Trouble relaxin = Not at all Being so restless that it is hard to sit still: 0 = Not at all Becoming easily annoyed or irritable: 0 = Not at all Feeling afraid as if something awful might happen: 0 = Not at all Total DEMOND-7 score (0-4 normal; 5-9 mild; 10-14 moderate; 15-21 severe): 0 Source: Developed by Drs. Guilherme Marie, Lydia Fisher, Oscar Rockwell and colleagues, with an educational anne marie from [employer]. DEMOND-7 Assessment Billing DEMOND-7 Assessment Tool: DEMOND-7 Assessment 65923 Review of Systems Const Denies fatigue, Denies fever(s), Denies headache(s) and Denies weakness Eyes Details: Goes to [facility] in [place] ENT Denies dizziness and Denies headache(s) Card Denies chest pain, Denies lightheadedness, Denies palpitations and Denies dyspnea Resp Denies dyspnea GI Denies abdominal pain, Denies change in bowel habits and Denies heartburn Reports no additional complaints Neuro Denies dizziness, Denies headache(s), Denies Sensory deficit (Neuro) and Denies weakness Psych Reports as per HPI Endo Denies fatigue, Denies polydipsia, Denies polyuria and Denies palpitations Physical exam (Primary Care) Tobacco/Smoking Status: Tobacco use Status Tobacco use date assessed 08/27/24 08/27/24 08:32 Patient Tobacco Use Status Former Tobacco user 08/27/24 08:23 Tobacco use type Cigarette 08/27/24 08:23 e-Cigarette/Vaping Use Never Used 08/27/24 08:23 PHQ-9: PHQ-9 Score PHQ-9: Total score 0 08/27/24 08:33 Depression Screening Interpretation: Negative Thrive Assessment: Date of Thrive Assessment Date Thrive assessed 08/27/24 08/27/24 08:33 Neuro Sensory Exam: No Sensory deficit (Neuro) Telehealth Telehealth Telehealth Platform: [facility] Location of provider rendering services: practice address Location of patient: address on file Patient Identification confirmed using: Name, : Yes Telehealth method: video Patient verbally consented to treatment: Yes Patient verbally consented to billing insurance company: Yes Patient informed of any privacy concerns related to visit: Yes Minutes spent on Phone/Video with Pt.: 15 Coding Level of Care Code Tele Est Pt Level 3 (76080) Diagnoses Generalized anxiety disorder F41.1 Additional Codes PHQ-9 - 12372 - PHQ-9 Billing: Yes ([id number]) DEMOND-7 Assessment Billing - DEMOND-7 Assessment Tool: DEMOND-7 Assessment 49398 ([id number]) Assessment & Plan Assessment & Plan (1) Generalized anxiety disorder: Code(s): F41.1 - Generalized anxiety disorder Category: Medical Plan: Feeling better on sertraline 100 mg per tablet taken once a day, will continue on present dose, refill sent, will see him for follow-up in January he is scheduled for physical exam Medications: Changed From sertraline 100 mg PO DAILY 30 days 30 tabs 5RF F41.1 - Generalized anxiety disorder To sertraline 100 mg PO DAILY 3 months 90 tabs 2RF F41.1 - Generalized anxiety disorder
== END 2024-08-27 09:39 | disposition home or self-care (01) ==
LOC: HO.HMCC 08:34
PROVIDERS: PCP Internal Medicine; Visit Provider Internal Medicine
DX: F41.1 Generalized anxiety disorder (principal)

== ENCOUNTER → 2024-08-27 08:34 | Outpatient (BNVA) | payer OTHER, SELFPAY | PROVIDERS: PCP Internal Medicine; Visit Provider Internal Medicine | DX: F41.1 Generalized anxiety disorder (principal) | CPT/HCPCS: 96127 ==

== ENCOUNTER 2025-02-24 11:33 | Outpatient (AMB) | payer OTHER, SELFPAY ==
--- NOTE | 2025-02-24 11:41 | MHC.PC.OV ---
Vital Signs 02/24/25 11:59 Height 6 ft 1 in Weight 199 lb BMI 26.3 BP 100/62 Blood Pressure Location Rt brachial Position Sitting Respiration 15 Pulse 64 Pulse Source Pulse Oximeter Temp 98.2 F Temp Source Oral Pulse Oximetry (%) 98 Oxygen Delivery Method Room Air Intake Visit Reasons: PE Intake Note: Pt is here today for his PE: Last colonocopy 12/11/22 Sonar Subsystem Equipment Operator Required: No Allergies Penicillins (PCN) Allergy (Verified 02/24/25 12:07) Rash Medication List - Last Reconciled 02/24/25 by Cleo Shell MD loratadine 10 mg PO DAILY PRN sertraline 100 mg PO DAILY 3 months Tobacco use date assessed: 02/24/25 Dental Screening Dental Screen Date: 02/24/25 Did you have a dental visit in the last 12 months?: Yes Did you have a dental problem in the last 6 months where you did not have access to dental care?: Yes Was dental information given to patient?: Patient has dentist HPI PE HPI Details The patient is a 49-year-old male presenting for his physical examination and management of chronic conditions including depression and TMJ disorder. The patient has a history of Temporomandibular Joint Disorder (TMJ) for which he underwent jaw surgery and Botox treatment done by Dr. Tobar , which significantly improved his symptoms. The surgery involved scraping and Botox injections, primarily on the right side, followed by physical therapy. The patient reports a history of depression, currently managed with sertraline. He has noticed a recurrence of symptoms over the past few months, prompting a discussion about increasing his sertraline dosage to 150 mg daily. The patient denies any significant sleep disturbances but acknowledges waking up frequently, which may affect his mood. The patient also reports erectile dysfunction, which he attributes to sertraline use. The patient experiences chronic back pain, exacerbated by certain activities such as bending over while standing. He manages this with physical therapy and exercises aimed at strengthening his core and hip muscles. Preventative care measures discussed include receiving an influenza vaccination and starting vitamin D supplementation, especially during the winter months. [facility] Medical History (Updated 02/27/25 @ 11:38 by Cleo Shell MD) Erectile dysfunction Bruxism (teeth grinding) Generalized anxiety disorder TMJ (temporomandibular joint disorder) Lumbago Bulging of lumbar intervertebral disc without myelopathy Degenerative disc disease, lumbar Superior labrum ethxhana-nv-rsksllpiu (SLAP) tear of right shoulder Surgical History Skin lesion of right leg Hx of colonoscopy H/O shoulder surgery H/O eye surgery Family History Mother Hypertension Family/Other Substance use disorder Social History Housing: House Alcohol intake: never Patient Tobacco Use Status: Former Tobacco user Tobacco use type: Cigarette Years Smoked: 10 e-Cigarette/Vaping Use: Never Used Second Hand Smoke Exposure: No service: Yes Current occupational status: employed Current occupational exposures/hazards: Yes Cognitive needs: No Hearing needs: No Vision needs: Yes Questionnaire PHQ-9 Over the last 2 weeks, how often have you been bothered by any of the following problems? 1. Little interest or pleasure in doing things: not at all 2. Feeling down, depressed, or hopeless: not at all 3. Trouble falling or staying asleep, or sleeping too much: not at all 4. Feeling tired or having little energy: not at all 5. Poor appetite or overeating: not at all 6. Feeling bad about yourself - or that you are a failure or have let yourself or your family down: not at all 7. Trouble concentrating on things, such as reading the newspaper or watching television: not at all 8. Moving or speaking so slowly that other people could have noticed. Or the opposite - being so fidgety or restless that you have been moving around a lot more than usual: not at all 9. Thoughts that you would be better off or of hurting yourself in some way: not at all Total score: 0 Depression Screening Interpretation: Negative Depression Screening Done: Yes Source: Developed by Drs. Guilherme Marie, Lydia Fisher, Oscar Rockwell and colleagues, with an educational anne marie from [employer]. Thrive Questionnaire Date Thrive assessed: 02/21/25 I am a: Patient What is your living situation today?: I have a steady place to live Within the past 12 months, did the food you bought not last and you didn't have the money to get more?: Never true Within the past 12 months, did you worry whether your food would run out before you got money to buy more?: Never true Do you have trouble paying for medicines?: No Do you have trouble getting transportation to medical appointments?: No Do you have trouble paying your heating and electricity bill?: No Do you have trouble taking care of your child, family member or friend?: No Do you have trouble with day-to-day activities such as bathing, preparing meals, shopping, managing finances, etc.?: No Are you currently unemployed and looking for a job?: No Are you interested in more education?: No Please select the resources that you would like help with: None Currently or been in a relationship where the following occur: No concerns reported THRIVE Score: 0 AUDIT C Alcohol Use Questionnaire (AUDIT-C) 1. How often do you have a drink containing alcohol?: Never Total Score: 0 DEMOND-7 AMB Questionnaire DEMOND-7 Date DEMOND - 7 assessed: 02/24/25 Feeling nervous, anxious, or on edge: 2 = More than half the days Not being able to stop or control worryin = Several days Worrying too much about different things: 1 = Several days Trouble relaxin = Several days Being so restless that it is hard to sit still: 0 = Not at all Becoming easily annoyed or irritable: 1 = Several days Feeling afraid as if something awful might happen: 1 = Several days Total DEMOND-7 score (0-4 normal; 5-9 mild; 10-14 moderate; 15-21 severe): 7 Source: Developed by Drs. Guilherme Marie, Lydia Fisher, Oscar Rockwell and colleagues, with an educational anne marie from [employer]. DEMOND-7 Assessment Billing DEMOND-7 Assessment Tool: DEMOND-7 Assessment 74807 Review of Systems Const Denies fatigue, Denies fever(s), Denies headache(s) and Denies weakness Eyes Details: Goes to [facility] in [place] ENT Denies dizziness and Denies headache(s) Card Denies chest pain, Denies lightheadedness, Denies palpitations and Denies dyspnea Resp Denies dyspnea GI Denies abdominal pain, Denies change in bowel habits and Denies heartburn Reports as per HPI Musc Reports as per HPI Skin/Breast Denies lesions, Denies nail changes and Denies rash Neuro Denies dizziness, Denies headache(s), Denies Sensory deficit (Neuro) and Denies weakness Psych Reports as per HPI Endo Denies fatigue, Denies polydipsia, Denies polyuria and Denies palpitations Feroz/Lymph Reports no additional complaints Aller/Immun Reports no additional complaints Physical exam (Primary Care) Vital Signs: Last Vital Signs Temp 98.2 F 02/24/25 11:59 Pulse 64 02/24/25 11:59 Resp 15 02/24/25 11:59 BP 100/62 02/24/25 11:59 Pulse Ox 98 02/24/25 11:59 Oxygen Delivery Method Room Air 02/24/25 11:59 BMI result Body Mass Index 26.3 Tobacco/Smoking Status: Tobacco use Status Tobacco use date assessed 02/24/25 02/24/25 12:01 Patient Tobacco Use Status Former Tobacco user 02/24/25 11:42 Tobacco use type Cigarette 02/24/25 11:42 e-Cigarette/Vaping Use Never Used 02/24/25 11:42 PHQ-9: PHQ-9 Score PHQ-9: Total score 0 02/24/25 12:13 Depression Screening Interpretation: Negative Thrive Assessment: Date of Thrive Assessment Date Thrive assessed 02/21/25 02/24/25 11:42 Currently or been in a relationship where the following occur: No concerns reported Const General: no acute distress and well developed Nutritional Appearance: average body habitus Orientation/consciousness: patient oriented x3 HENMT Head: Yes normocephalic Ears: external ears normal, TM's normal bilaterally and EAC's normal General nose exam: Normal external nose present Face and sinus: Yes face symmetric Mouth: Normal oral and palatal mucosa present and moist mucous membranes Eyes General: appearance normal, both eyes and all related structures Neck Neck: Yes full ROM, Yes no lymphadenopathy and Yes supple Thyroid: Thyroid normal Chest Chest palpation & inspection: normal inspection of the chest Resp Effort & Inspection: normal respiratory effort and able to speak in complete sentences Auscultation: clear to auscultation bilaterally Cardio Other: S1-S2 present regular rate and rhythm Rate: regular rate Rhythm: regular rhythm Heart sounds: S1 normal heart sound present and S2 normal heart sound present GI Other: Normal bowel sounds soft nontender with no mass palpated Inspection: Yes normal to inspection Palpation (GI): Soft to palpation, nontender, no guarding, no hernias and no masses Auscultation: normal bowel sounds General: Yes no CVA tenderness Male General Exam: Yes normal external exam Back/Spine/Pelvis Back: no CVA tenderness Skin General skin exam: no rashes or lesions noted Neuro General: patient oriented x3, tone normal, moves all extremities, Normal light touch and pain sensation, no focal motor deficits and CN's II-XI intact bilaterally Cognition (Neuro): normal cognition Gait exam (Neuro): Normal gait present Sensory Exam: No Sensory deficit (Neuro) Extrem General: Yes full ROM, Yes no joint enlargement and Yes no clubbing, cyanosis or edema Psych Appearance: grossly normal and well kempt Mental Status: mental status grossly normal Speech and movement: Normal speech and movement present Affect: normal affect Coding Level of Care Code Est Pt Prev Care 40-64y(53194) Diagnoses Generalized anxiety disorder F41.1 Erectile dysfunction N52.9 TMJ (temporomandibular joint disorder) M26.609 Annual visit for general adult medical examination with abnormal findings Z00.01 Additional Codes DEMOND-7 Assessment Billing - DEMOND-7 Assessment Tool: DEMOND-7 Assessment 79389 ([id number]) Assessment & Plan Assessment & Plan (1) Generalized anxiety disorder: Code(s): F41.1 - Generalized anxiety disorder Category: Medical Plan: Increase sertraline to 150 mg daily. Continue counseling (2) Erectile dysfunction: Code(s): N52.9 - Male erectile dysfunction, unspecified Category: Medical Plan: Prescription sent for sildenafil 100 mg per tablet to take half a tablet to 1 tablet once a day only as needed. Possible side effects of medication which may include chest tightness. (3) TMJ (temporomandibular joint disorder): Comment: s/p surgery and Botox injection by Dr Tobar Code(s): M26.609 - Unspecified temporomandibular joint disorder, unspecified side Category: Medical Plan: Followed by Dr. Gardiner, received Botox injection on right TMJ and had surgery (4) Annual visit for general adult medical examination with abnormal findings: Code(s): Z00.01 - Encounter for general adult medical examination with abnormal findings Plan: Will check appropriate labs. Continue with regular dental visit and regular eye exams, at least every 2 years. Take adequate calcium in diet and vitamin-D 3 at 2000 IU per cap once a day, in addition to weight-bearing exercises to help maintain good muscle tone and weight control. Instructed to do self-testicular exam check for any mass. Had a normal screening colonoscopy done by Dr. Hay in 2022, repeat colonoscopy due again in 2032. Patient advised to get his flu vaccine and get an updated COVID booster and Tdap Orders: Orders Testosterone, Free/Total 02/24/25 N52.9 - Male erectile dysfunction, unspecified Medications: New sildenafil (Viagra) administer 30 minutes to 4 hours before activity 100 mg PO DAILY PRN 10 tabs 2RF sexual activity Changed From sertraline 100 mg PO DAILY 3 months 90 tabs 2RF F41.1 - Generalized anxiety disorder To sertraline 150 mg (1.5 x 100 mg) PO DAILY 135 tabs 2RF 3 months F41.1 - Generalized anxiety disorder
[2025-02-24 11:59] VITALS: BP 100/62; PULSE 64; RESP 15; TEMP 36.8; O2SAT 98; BMI 26.3
--- OUTSIDE RECORDS SUMMARY | 2025-02-24 16:21 | XMS_ITS | Clinical Summary ---
Author Organization [facility] Address [address] [place] [id number] Phone Care Team Providers Care Supervisor [employer] Name Role Phone Gerard Gomez MD Unavailable [phone] Cleo Shell MD Primary Care Provider Allergies Active Allergy Reactions Criticality Noted Date Comments Amoxicillin Rash Low 11/11/2017 Ampicillin Unknown 04/11/2015 Other 04/20/2019 environmental Medications methylPREDNISol one (MEDROL DOSEPACK) 4 mg tablet follow package directions 21 tablet 3 Active prednisoLONE acetate (PRED FORTE) 1 % ophthalmic suspension Place 1 drop into the left eye 4 (four) times a day. 10 mL 5 3 Active Active Problems Problem Noted Date Diagnosed Date History of deployment 06/07/2023 [facility] 11/21/2022 11/21/2022 Arthralgia of shoulder 06/02/2017 3 Overview (11/21/2022): Nov 11, 2017 Entered By: EMIGDIO LUEVANO Comment: better after right shoulder surgery and physical therapy Muscle weakness 05/28/2017 11/21/2022 Impingement syndrome of shoulder region 01/14/20 17 Allergic rhinitis 11/12/2016 11/21/2022 Immunizations Immunization Administration Dates Next Due Hep A-Hep B 06/19/2010 INFLUENZA, SPLIT VIRUS, TRIVALENT W/ PRESERVATIV E IM 01/31/2017,02/15/2012 IPV 06/19/2010 Influenza Quadrivalent MDCK Preservative Free IM 03/28/2022 Influenza Quadrivalent Preservative Free IM 04/02 Influenza quadrivalent nasal 04/11/2010 Meningococcal MCV4P 06/19/2010 Tdap 04/12/2020,06/19/2010 Family History Medical History Relation Comments Glaucoma Father Hypertension Mother Cancer Neg Hx Diabetes Neg Hx [place] Neg Hx Macular degeneration Neg Hx Retinal detachment Neg Hx Relation Status Comments Father Mother Social History Tobacco Use Types Packs/Day Years Used Date Smoking Tobacco: Former Smokeless Tobacco: Never Tobacco Cessation:Counseling Given: Not Answered Alcohol Use Standard Drinks/Week Comments Never 0 (1 standard drink = 0.6 oz pur e alcohol) Education Answer Date Recorded Are you interested in more education? Not on rashmi e 10/03/2022 Are you concerned about learning? Not on file 10/03/2022 No 10/03/2022 No 10/03/2022 Digital Access Answer Date Recorded No 10/26/2022 No 10/26/2022 Reliable internet access at home? Not on file 10/26/2022 Device with a working camera? Not on file Sex and Gender Information Value Date Recorded Sex Assigned at Male 02/22/2021 7:46 AM EDT Legal Sex Male 6:28 PM EST Gender Identity Male 02/22/2021 7:46 AM EDT Sexual Orientation Straight 02/22/2021 7: 46 AM EDT Last Filed Vital Signs Vital Sign Reading Time Taken Comments Blood Pressure 124/81 06/07/2023 10:04 AM EST Pulse 80 06/07/2023 10:04 AM EST Temperature 36.9 C (98.5 F) 06/07/2023 10:04 AM EST Respiratory Rate 16 06/07/2023 10:04 AM EST Oxygen Saturation 97% 06/07/2023 10:04 AM EST Inhaled Oxygen Concentration - - Weight 86.2 kg (190 lb) 11/21/2022 8:34 AM EDT Height 185.4 cm (6' 1 ) 11/16/2019 9:26 AM EDT Body Mass Index 25.07 11/16/2019 9:26 AM EDT Plan of Treatment Upcoming Encounters Date Type Department Care Team (Late st Contact Info) Description 03/31/2025 1:00 PM EDT Office Visit [facility] [address] [place] [address] Aisha Veronica, OD [address] [place] [address] [email or web address] Health Maintenance Due Date Last Done Comments DEPRESSION SCREENING 1985 SMOKING Hx and SMOKELESS TOBACCO SCREENING 1986 HEPATITIS C SCREENING 10/09/1991 HIV ONE-TIME SCREENING (18-65 YEARS) 10/09/1991 SCREENING FOR DIABETES 2008 COLOGUARD 2018 COLONOSCOPY 2018 COLORECTAL CANCER SCREENING 2018 FIT TEST 2018 FOBT 2018 SIGMOIDOSCOPY 2018 VIRTUAL COLONOSCOPY 2018 LIPID PANEL 04/11/2020 04/11/2015 PNEUMOCOCCAL VACCINES (50+ years) (1 of 1 - PCV) 10/09/2023 ZOSTER VACCINES (1 of 2) 10/09/2023 INFLUENZA VACCINE (#1) 2024 , 01/31/2017, 04/11/2015, Additional history exists COVID-19 VACCINE ( season) 2025 03/28/2022, 04/23/2021, 09/04/2020, Additional history exists Adult Td,Tdap Booster 04/12/2030 04/12/2020, 011 HEPATITIS A VACCINES Aged Out 06/19/2010 No long er eligible based on patient's age to complete this topic MENINGOCOCCAL VACCINES (ACWY) Aged Out 06/19/2010 No longer eligible based on patient's age to complete this topic HIB VACCINES Aged Out No longer eligi ble based on patient's age to complete this topic MENINGOCOCCAL VACCINES (B) Aged Out N o longer eligible based on patient's age to complete this topic Medical Devices Not on file Procedures Procedure Name Priority Date/Time Associated Diagnosis Comments OUTSIDE LDL Routine 04/11/2015 from Last 3 Months or Most Recently Relevant to Health Maintenance Results * Outside LDL (04/11/2015) LDL - External 75 50 - 250 mg/ml us Historical Provider LAB BLOOD ORDERABLES Lizbeth l Result from Last 3 Months or Most Recently Relevant to Health Maintenance [place] [address] [place] [address] Care Teams Supervisor [employer] Relationship Specialty Start Date End Date Cleo Shell MD [address] [place] [address] PCP - General Internal Medicine 01/31/21 Gerard Gomez MD [address] [place] [address], [address] [place] [address] [email or web address] Historical [facility] Provider 03/22/17 Additional Source Comments The information contained in this document represents components of the legal health record. It is not the complete legal health record.[facility]
== END 2025-02-24 12:24 | disposition home or self-care (01) ==
LOC: HO.HMCC 11:33
PROVIDERS: PCP Internal Medicine; Visit Provider Internal Medicine
DX: F41.1 Generalized anxiety disorder (principal); N52.9 Male erectile dysfunction, unspecified; M26.609 Unspecified temporomandibular joint disorder, unspecified side; Z00.01 Encounter for general adult medical examination with abnormal findings; Z00.00 Encounter for general adult medical examination without abnormal findings

== ENCOUNTER → 2025-02-24 11:33 | Outpatient (BNVA) | payer OTHER, SELFPAY | PROVIDERS: PCP Internal Medicine; Visit Provider Internal Medicine | DX: Z00.01 Encounter for general adult medical examination with abnormal findings (principal); M26.601 Right temporomandibular joint disorder, unspecified; F32.A Depression, unspecified; N52.9 Male erectile dysfunction, unspecified; F41.1 Generalized anxiety disorder | CPT/HCPCS: 96127 ==